=== PATIENT | male | born 1960 | race Caucasian/White ===

== ENCOUNTER → 2016-11-30 | Outpatient (CLI) | payer OTHER ==
[~2016-11-30] VITALS: Ht 170.2 cm; Wt 83.4 kg
[~2016-11-30] MED LIST: ADV250INH INH; ADV500INH INH; AEROCHAMBER PLUS; BREO1INH3 INH; DOCU10ELUD PO; IBUP80TA PO; LEVO500T PO; LIDOCAINE 2% INJ 100 MG/5 ML SDV (FOR ANES.) As Ordered ONE; MIDAZOLAM INJ 2 MG/2 ML VIAL (J2250) As Ordered ONE; MONT10TA2 PO; MULTCAP PO; NEUR300C PO; NS 1,000 ML IV SCH; OMEP40CA2 PO; PERC5TAB6 PO; PERCOCET PO; PRIL40CA PO; PROPOFOL 200 MG/20 ML VIAL As Ordered ONE; PROT1TAB2 PO; RANI15TA PO; TYLE325T5 PO; VENTOLIN ROTAHALER INH; XOPENEX INH; ZANT150T PO; fentaNYL 100 MCG/2 ML INJECTION (J3010) As Ordered ONE
--- NOTE | 2016-11-30 12:00 | ROOR ---
Patient Name: Yan Alvarez Procedure Date: 11/30/2016 11:34 AM Date of : 1960 Age: 56 Room: [facility] Gender: Male Note Status: Finalized Procedure: Upper GI endoscopy Indications: Oropharyngeal phase dysphagia, Unexplained chest pain, Costochondritis Providers: Yan RICKS MD Referring MD: ROHIT Tompkins Requesting Provider: Medicines: Monitored Anesthesia Care Complications: No immediate complications. Procedure: Pre-Anesthesia Assessment: - The heart rate, respiratory rate, oxygen saturations, blood pressure, adequacy of pulmonary ventilation, and response to care were monitored throughout the procedure. The Endoscope was introduced through the mouth, and advanced to the second part of duodenum. The upper GI endoscopy was accomplished without difficulty. The patient tolerated the procedure well. Findings: The examined esophagus was normal. This was biopsied with a cold forceps for evaluation of eosinophilic esophagitis. No endoscopic abnormality was evident in the esophagus to explain the patient's complaint of dysphagia. It was decided, however, to proceed with dilation of the entire esophagus. The scope was withdrawn. Dilation was performed with a Wills dilator with no resistance at 54 Fr. A few, non-bleeding erosions were found in the gastric body. There were no stigmata of recent bleeding. Biopsies were taken with a cold forceps for histology. The exam of the stomach was otherwise normal. The examined duodenum was normal. Impression: - Normal esophagus. Biopsied. - No endoscopic esophageal abnormality to explain patient's dysphagia. Esophagus dilated to 54 F wills. - Mild erosive gastropathy. Biopsied. - Stomach otherwise normal. - Normal examined duodenum. Recommendation: - Observe patient's clinical course. - Continue present medications. - Telephone endoscopist for pathology results in 2 weeks. Yan Ricks MD Yan RICKS MD 11/30/2016 11:59:31 AM This report has been signed electronically. Number of Addenda: 0 Note Initiated On: 11/30/2016 11:34 AM Estimated Blood Loss: Estimated blood loss: none.
[2016-11-30 12:32] VITALS: BP 150/90
--- NOTE | 2016-12-02 00:45 | ECGEPIP ---
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
== END ==
LOC: M OPP 10:21
PROVIDERS: ATTEND Internal Medicine Gastroenterology
DX: R13.12 Dysphagia, oropharyngeal phase (principal); K31.89 Other diseases of stomach and duodenum; E78.5 Hyperlipidemia, unspecified; J45.909 Unspecified asthma, uncomplicated; K21.9 Gastro-esophageal reflux disease without esophagitis; F17.210 Nicotine dependence, cigarettes, uncomplicated; F17.290 Nicotine dependence, other tobacco product, uncomplicated; R94.31 Abnormal electrocardiogram [ECG] [EKG]; Z88.0 Allergy status to penicillin; Z88.8 Allergy status to other drugs, medicaments and biological substances; Z79.899 Other long term (current) drug therapy; Z79.51 Long term (current) use of inhaled steroids
CPT/HCPCS: 43239; 43450; 88305; 93005; 99156; J2250; J3010

== ENCOUNTER → 2016-12-27 | Outpatient (CLI) | payer OTHER ==
[~2016-12-27] MED LIST changes: -LIDOCAINE 2% INJ 100 MG/5 ML SDV (FOR ANES.) As Ordered ONE; -MIDAZOLAM INJ 2 MG/2 ML VIAL (J2250) As Ordered ONE; -NS 1,000 ML IV SCH; -PROPOFOL 200 MG/20 ML VIAL As Ordered ONE; -fentaNYL 100 MCG/2 ML INJECTION (J3010) As Ordered ONE
--- NOTE | 2016-12-27 14:00 | REP ---
Clinical: Chest pain . Comparison: 05/26/2016 . Technique: PA and lateral. Findings: The mediastinum and cardiac silhouette are normal. The lung ashton are clear and without acute consolidation, effusion, or pneumothorax. The skeletal structures are intact and normal. Impression: 1. No acute cardiopulmonary process. Signed by Kaveh Gold MD 12/27/2016 01:51 P
[2016-12-27 14:30] LABS: BASO # 0.1 K/mm3 (0.0-0.2); BASO % 0.8 % (0.0-1.0); EOS # 0.3 K/mm3 (0.0-0.50); EOS % 3.4 % (0.0-3.0); LYMPH # 2.2 K/mm3 (1.5-4.5); LYMPH % 25.6 % (24.0-44.0); MEAN CORPUSCULAR HEMOGLOBIN 31.1 pg (27.0-33.0); MEAN CORPUSCULAR HGB CONC 34.5 g/dl (32.0-36.5); MEAN CORPUSCULAR VOLUME 90.2 fl (80.0-96.0); MONO # 0.4 K/mm3 (0.0-0.8); NEUTROPHILS # 5.5 K/mm3 (1.8-7.7); NEUTROPHILS % 63.5 % (36.0-66.0); RED CELL DISTRIBUTION WIDTH 12.6 % (11.5-14.5); WHITE BLOOD COUNT 8.6 K/mm3 (4.0-10.0)
[2016-12-27 14:46] LABS: ALBUMIN 3.5 GM/DL (3.2-5.2); ALBUMIN/GLOBULIN RATIO 1.21 (1.00-1.93); ALKALINE PHOSPHATASE 102 U/L (45-117); ALT/SGPT 36 U/L (12-78); AMYLASE 34 U/L (25-115); ANION GAP 8 MEQ/L (8-16); AST/SGOT 27 U/L (15-37); BILIRUBIN,TOTAL 0.3 MG/DL (0.2-1.0); BLOOD UREA NITROGEN 9 MG/DL (7-18); CARBON DIOXIDE LEVEL 30 MEQ/L (21-32); CHLORIDE LEVEL 104 MEQ/L (98-107); CHOLESTEROL LEVEL 221 MG/DL (<200); CREATININE FOR GFR 0.97 MG/DL (0.70-1.30); GLOMERULAR FILTRATION RATE > 60.0 (>56); GLUCOSE, FASTING 100 MG/DL (70-105); POTASSIUM SERUM 4.3 MEQ/L (3.5-5.1); SODIUM LEVEL 142 MEQ/L (136-145); TOTAL PROTEIN 6.4 GM/DL (6.4-8.2); TRIGLYCERIDES LEVEL 319 MG/DL (<150)
== END ==
LOC: M LAB 13:30
PROVIDERS: ATTEND Physician Assistant Medical
DX: R07.89 Other chest pain (principal)

== ENCOUNTER → 2017-01-04 | Outpatient (CLI) | payer OTHER ==
--- NOTE | 2017-01-04 10:42 | REP ---
CT STUDY OF THE CHEST WITHOUT CONTRAST: HISTORY: Shortness of breath, chest pain, cough. Comparison chest CT study is from May 22, 2010. Comparison chest x-ray December 27, 2016. CT FINDINGS: Preliminary digital wide piece goods inspector radiograph is unremarkable. No adrenal lesion is seen. There are granulomatous calcifications scattered in the spleen. The visualized upper abdominal structures are otherwise unremarkable on axial CT images. No extrathoracic mass or adenopathy is seen. Bone window settings show no bony destructive lesion. There are some degenerative changes in the thoracic spine. Incidental note is made of a small tracheal diverticulum projecting to the right of the tracheoesophageal groove at the thoracic inlet. This is a normal variant of no clinical significance and is unchanged from [address] study. The lung ashton remain clear. No pulmonary nodule or mass lesion is seen. No pleural or pericardial effusion is observed. Minimal vascular calcification is seen in the left coronary artery distribution. Tracheobronchial tree is unremarkable. IMPRESSION: Old granulomatous calcifications in the spleen. Minimal vascular calcification. No active cardiopulmonary disease. Signed by Sergio Parker MD 01/04/2017 04:43 P
== END ==
LOC: M RAD 06:52
PROVIDERS: ATTEND Physician Assistant Medical
DX: R07.89 Other chest pain (principal)

== ENCOUNTER → 2017-03-15 | Outpatient (REF) | payer OTHER ==
[2017-03-15 12:34] LABS: ALBUMIN 3.6 GM/DL (3.2-5.2); ALBUMIN/GLOBULIN RATIO 1.24 (1.00-1.93); BILIRUBIN,DIRECT 0.1 MG/DL (0.0-0.2); BILIRUBIN,TOTAL 0.4 MG/DL (0.2-1.0); TOTAL PROTEIN 6.5 GM/DL (6.4-8.2)
== END ==
LOC: M LABDRWAD 12:00
PROVIDERS: ATTEND Internal Medicine Cardiovascular Disease
DX: E78.00 Pure hypercholesterolemia, unspecified (principal)

== ENCOUNTER → 2017-04-24 | Outpatient (CLI) | payer OTHER ==
--- NOTE | 2017-04-24 09:55 | REP ---
REASON FOR EXAM: Low back pain. COMPARISON: None. There is mild to moderates loss of disc space height and disc hydrational signal at L2-3 and L4-5. Mild posterior disc space height loss is seen at all other levels with mild hydrational signal loss. The marrow signal is within normal limits throughout. No abnormal signal is seen in the imaged portion of the spinal cord. At the T12-L1 level, there is a moderate right paracentral disc extrusion which causes a focal concave anterior deformity of the anterior thecal sac. The extruded disc material has not migrated significantly. There is no gladys central canal stenosis or foraminal narrowing. At the L1-2 level, there is a mild broad-based annular bulge. There is no disc herniation, foraminal narrowing or central canal stenosis. At the L2-3 level. There is a mild to moderate broad-based annular bulge minimally compressing the anterior thecal sac and narrowing the lateral recesses. Mild degenerative facet joint changes are present bilaterally with mild thickening of the ligamentum flava. There was no disc extrusion or foraminal stenosis. At the L3-4 level, there is moderate to large broad-based annular bulge, which flattens and straightens the anterior thecal sac. Degenerative facet joint changes are seen bilaterally with thickening of the ligamentum flava and the factors in concert are causing mild central canal stenosis. There is no foraminal narrowing or disc extrusion. At the L4-5 level. There is a broad-based annular bulge in conjunction with hypertrophic degenerative facet joint changes bilaterally and thickening of the ligamentum flava. There is no acute disc extrusion. The discogenic changes and degenerative facet joint arthritic changes are causing mild foraminal stenosis and there is evidence of compression of the left L4 foraminal nerve. At the L5-S1 level, there is a mild asymmetric broad-based annular bulge with degenerative facet joint changes bilaterally. There is minimal anterior thecal sac impression by the discogenic changes. There is no disc extrusion, foraminal narrowing or gladys central canal stenosis. IMPRESSION: 1. There is a disc extrusion seen at T12-L1 as described above. 2. There are multilevel lumbar discogenic changes and facet joint arthritic changes as described above. Signed by Scott Baptiste DO 04/24/2017 11:04 A
== END ==
LOC: M RAD 06:42
PROVIDERS: ATTEND Physician Assistant Medical
DX: M54.5 Low back pain (principal)

== ENCOUNTER 2017-05-14 07:13 | Emergency (ER) | payer OTHER ==
[~2017-05-14] VITALS: Ht 172.7 cm; Wt 77.3 kg
[~2017-05-14 07:13] MED LIST changes: +PERC5TAB12 PO; -PERC5TAB6 PO
[2017-05-14 07:18] VITALS: BP 156/90
[2017-05-14] MEDS ORDERED: IBUP-1022 PO (07:42)
[2017-05-14] MEDS ORDERED: SOMA350T PO (07:42)
== END 2017-05-14 07:53 | disposition home or self-care (01) ==
LOC: M ED 07:13
DX: M54.2 Cervicalgia (principal); J45.909 Unspecified asthma, uncomplicated; K21.9 Gastro-esophageal reflux disease without esophagitis; Z79.899 Other long term (current) drug therapy; Z79.51 Long term (current) use of inhaled steroids; Z88.0 Allergy status to penicillin; Z88.5 Allergy status to narcotic agent; Z88.8 Allergy status to other drugs, medicaments and biological substances; Z91.010 Allergy to peanuts; F17.210 Nicotine dependence, cigarettes, uncomplicated

== ENCOUNTER → 2017-10-22 | Outpatient (REF) | payer OTHER ==
[~2017-10-22] MED LIST changes: +IBUP-1022 PO; +SOMA350T PO
[2017-10-22 12:42] LABS: BASO # 0.1 10^3/uL (0.0-0.2); EOS # 0.3 10^3/uL (0.0-0.50); EOS % 3.2 % (0.0-3.0); IMMATURE GRANULOCYTE % 0.6 % (0-0); LYMPH # 2.9 10^3/uL (1.5-4.5); LYMPH % 32.4 % (24.0-44.0); MEAN CORPUSCULAR HEMOGLOBIN 30.9 pg (27.0-33.0); MEAN CORPUSCULAR HGB CONC 32.7 g/dl (32.0-36.5); MEAN CORPUSCULAR VOLUME 94.8 fl (80.0-96.0); MONO # 0.7 10^3/uL (0.0-0.8); MONO % 7.3 % (0.0-5.0); NEUTROPHILS % 55.5 % (36.0-66.0); PLATELET COUNT, AUTOMATED 272 10^3/uL (150-450); RED CELL DISTRIBUTION WIDTH 13.7 % (11.5-14.5)
[2017-10-22 13:08] LABS: ALBUMIN 3.7 GM/DL (3.2-5.2); ALBUMIN/GLOBULIN RATIO 1.12 (1.00-1.93); ALKALINE PHOSPHATASE 81 U/L (45-117); ALT/SGPT 28 U/L (12-78); ANION GAP 6 MEQ/L (8-16); AST/SGOT 19 U/L (7-37); BILIRUBIN,TOTAL 0.5 MG/DL (0.2-1.0); BLOOD UREA NITROGEN 12 MG/DL (7-18); CALCIUM LEVEL 9.3 MG/DL (8.5-10.1); CARBON DIOXIDE LEVEL 31 MEQ/L (21-32); CHLORIDE LEVEL 107 MEQ/L (98-107); CHOLESTEROL LEVEL 178 MG/DL (<200); CREATININE FOR GFR 0.86 MG/DL (0.70-1.30); FREE T4 1.13 NG/DL (0.76-1.46); GLOMERULAR FILTRATION RATE > 60.0 (>56); GLUCOSE, FASTING 97 MG/DL (70-105); POTASSIUM SERUM 4.7 MEQ/L (3.5-5.1); SODIUM LEVEL 144 MEQ/L (136-145); T UPTAKE 39 % (33-40); TRIGLYCERIDES LEVEL 216 MG/DL (<150)
== END ==
LOC: M LABDRWAD 12:09
PROVIDERS: ATTEND Physician Assistant Medical
DX: E78.2 Mixed hyperlipidemia (principal); G47.00 Insomnia, unspecified

== ENCOUNTER → 2018-01-12 | Outpatient (CLI) | payer OTHER ==
[2018-01-12 10:46] LABS: HEMATOCRIT 45.7 % (42.0-52.0); HEMOGLOBIN 15.4 g/dl (14.0-18.0); MEAN CORPUSCULAR HEMOGLOBIN 30.7 pg (27.0-33.0); MEAN CORPUSCULAR HGB CONC 33.7 g/dl (32.0-36.5); MEAN CORPUSCULAR VOLUME 91.2 fl (80.0-96.0); PLATELET COUNT, AUTOMATED 231 10^3/uL (150-450); RED BLOOD COUNT 5.01 10^6/uL (4.30-6.10); RED CELL DISTRIBUTION WIDTH 13.9 % (11.5-14.5); WHITE BLOOD COUNT 8.9 10^3/uL (4.0-10.0)
[2018-01-12 11:11] LABS: ALBUMIN 3.9 GM/DL (3.2-5.2); ALBUMIN/GLOBULIN RATIO 1.39 (1.00-1.93); ALKALINE PHOSPHATASE 94 U/L (45-117); ALT/SGPT 25 U/L (12-78); ANION GAP 6 MEQ/L (8-16); AST/SGOT 19 U/L (7-37); BILIRUBIN,TOTAL 0.5 MG/DL (0.2-1.0); BLOOD UREA NITROGEN 10 MG/DL (7-18); CARBON DIOXIDE LEVEL 30 MEQ/L (21-32); CHLORIDE LEVEL 106 MEQ/L (98-107); CHOLESTEROL LEVEL 145 MG/DL (<200); CHOLESTEROL RISK RATIO 3.452 (<5); GLOMERULAR FILTRATION RATE > 60.0 (>56); GLUCOSE, FASTING 90 MG/DL (70-100); HDL CHOLESTEROL 42 MG/DL (>40); LDL CHOLESTEROL 77.4 MG/DL (<100); NON-HDL-C 103 MG/DL; POTASSIUM SERUM 4.5 MEQ/L (3.5-5.1); PSA SCREENING 0.42 NG/ML (< 4.0); SODIUM LEVEL 142 MEQ/L (136-145); THYROID STIMULATING HORMONE 0.618 uIU/ML (0.358-3.740); TOTAL PROTEIN 6.7 GM/DL (6.4-8.2); TRIGLYCERIDES LEVEL 128 MG/DL (<150)
[2018-01-13 11:09] LABS: TESTOSTERONE 346 NG/DL (241-827)
== END ==
LOC: M EKG 10:16
DX: J44.9 Chronic obstructive pulmonary disease, unspecified (principal)
CPT/HCPCS: 71046

== ENCOUNTER → 2018-01-28 | Outpatient (CLI) | payer OTHER | LOC: M ADAMS 10:35 | DX: M47.896 Other spondylosis, lumbar region (principal); M47.892 Other spondylosis, cervical region | CPT/HCPCS: 72050 ==

== ENCOUNTER → 2018-02-18 | Outpatient (REF) | payer OTHER | LOC: M LABDRAW1 11:38 | DX: Z13.820 Encounter for screening for osteoporosis (principal) ==

== ENCOUNTER → 2018-02-27 | Outpatient (CLI) | payer OTHER ==
[2018-02-27 10:23] LABS: INR 0.98; PROTHROMBIN TIME 13.1 SECONDS (12.4-14.5)
[2018-02-27 10:40] LABS: ESTIMATED AVERAGE GLUCOSE 108 MG/DL (60-110); HEMATOCRIT 47.8 % (42.0-52.0); HEMOGLOBIN 16.4 g/dl (13.5-17.5); HEMOGLOBIN A1c 5.4 %; MEAN CORPUSCULAR HEMOGLOBIN 31.1 pg (27.0-33.0); MEAN CORPUSCULAR HGB CONC 34.3 g/dl (32.0-36.5); MEAN CORPUSCULAR VOLUME 90.5 fl (80.0-96.0); PLATELET COUNT, AUTOMATED 262 10^3/uL (150-450); RED BLOOD COUNT 5.28 10^6/uL (4.30-6.10); RED CELL DISTRIBUTION WIDTH 14.1 % (11.5-14.5)
[2018-02-27 10:44] LABS: ALBUMIN/GLOBULIN RATIO 1.29 (1.00-1.93); ALKALINE PHOSPHATASE 102 U/L (45-117); ALT/SGPT 36 U/L (12-78); ANION GAP 5 MEQ/L (8-16); AST/SGOT 26 U/L (7-37); BILIRUBIN,TOTAL 0.6 MG/DL (0.2-1.0); BLOOD UREA NITROGEN 11 MG/DL (7-18); CALCIUM LEVEL 9.3 MG/DL (8.5-10.1); CARBON DIOXIDE LEVEL 29 MEQ/L (21-32); CHLORIDE LEVEL 110 MEQ/L (98-107); CHOLESTEROL LEVEL 193 MG/DL (<200); CHOLESTEROL RISK RATIO 3.574 (<5); CREATININE FOR GFR 0.92 MG/DL (0.70-1.30); GLOMERULAR FILTRATION RATE > 60.0 (>56); GLUCOSE, FASTING 109 MG/DL (70-100); HDL CHOLESTEROL 54 MG/DL (>40); LDL CHOLESTEROL 106.8 MG/DL (<100); NON-HDL-C 139 MG/DL; POTASSIUM SERUM 4.9 MEQ/L (3.5-5.1); PROSTATIC SPECIFIC AG MONITOR 0.44 NG/ML (< 4.0); SODIUM LEVEL 144 MEQ/L (136-145); THYROID STIMULATING HORMONE 0.399 uIU/ML (0.358-3.740); TOTAL PROTEIN 7.1 GM/DL (6.4-8.2); TRIGLYCERIDES LEVEL 161 MG/DL (<150)
== END ==
LOC: M LAB 09:43
DX: Z01.818 Encounter for other preprocedural examination (principal); E03.9 Hypothyroidism, unspecified
CPT/HCPCS: 84443

== ENCOUNTER 2018-03-10 07:04 | Inpatient (IN) | payer OTHER ==
[2018-03-10] MEDS ORDERED: LIDOCAINE 2% INJ 100 MG/5 ML SDV (FOR ANES.) As Ordered (07:28)
[2018-03-10] MEDS ORDERED: PROPOFOL 200 MG/20 ML VIAL As Ordered ×2 (07:28→12:55)
[2018-03-10] MEDS ORDERED: ROCURONIUM BROMIDE 50 MG/5 ML VIAL As Ordered ×2 (07:28→09:25)
[2018-03-10] MEDS ORDERED: dexameTHASONE 4 MG/ML 1ML VIAL (J1100) As Ordered (07:28)
[2018-03-10] MEDS ORDERED: fentaNYL 250 MCG/5 ML INJECTION (J3010) As Ordered (07:29)
[2018-03-10] MEDS ORDERED: MIDAZOLAM INJ 2 MG/2 ML VIAL (J2250) As Ordered (07:29)
[2018-03-10] MEDS: LR 1,000 ML IV ×2 (07:32→13:07)
[2018-03-10] MEDS: CLINDAMYCIN 900 MG in APPROPRIATE DILUENT 1 EA IV ×2 (08:35→20:27)
[2018-03-10] MEDS: OXYMETAZOLINE NASAL SPRAY (AFRIN) As Ordered (08:50)
[2018-03-10] MEDS ORDERED: GLYCOPYRROLATE INJ 0.2 MG/ML 2 ML VIAL As Ordered (09:41)
[2018-03-10] MEDS ORDERED: NEOSTIGMINE 10 MG/10 ML VIAL (J2710) As Ordered (09:41)
[2018-03-10] MEDS ORDERED: HYDROmorphone HCL 2 MG/ML 1ML VIAL (J1170) As Ordered (09:42)
[2018-03-10] MEDS ORDERED: ESMOLOL INJ 100MG/10ML VIAL As Ordered (11:37)
[2018-03-10] MEDS: THROMBIN SOLN 20,000 UNITS KIT As Ordered (12:40)
[2018-03-10] MEDS: methylPREDNISolone SUSP 40 MG/ML (DEPO-medrol) VIAL (J1030) As Ordered (12:40)
[2018-03-10] MEDS: BACITRACIN PWD 50,000 UNITS VIAL As Ordered (12:40)
[2018-03-10] MEDS ORDERED: LABETALOL HCL 100 MG/20 ML VIAL As Ordered (12:51)
[2018-03-10] MEDS ORDERED: fentaNYL 100 MCG/2 ML INJECTION (J3010) As Ordered (12:56)
[2018-03-10] MEDS ORDERED: HYDROmorphone HCL 1 MG/ML SYRINGE (J1170) As Ordered (13:22)
[2018-03-10] MEDS ORDERED: PERCOCET 5MG/325MG TAB As Ordered (13:22)
[2018-03-10] MEDS: PERCOCET 5MG/325MG TAB PO ×3 (13:23→17:52)
[2018-03-10] MEDS: HYDROmorphone HCL 1 MG/ML SYRINGE (J1170) IV ×5 (13:25→14:04)
[2018-03-10] MEDS ORDERED: ACETAMINOPHEN TAB 650MG DOSE (2X325MG) PO (13:45)
[2018-03-10] MEDS ORDERED: MORPHINE 2 MG/ML 1ML SYRINGE (J2270) IV (13:45)
[2018-03-10] MEDS ORDERED: traMADol 50 MG TAB PO (13:45)
[2018-03-10] MEDS: KCL 20MEQ IN D5/0.45NS 1000ML 1,000 ML IV (13:45)
[2018-03-10] MEDS ORDERED: ONDANSETRON 4MG/2ML VIAL (J2405) IV (13:45)
[2018-03-10] MEDS: ONDANSETRON 4MG/2ML VIAL (J2405) IV (13:55)
[2018-03-10] MEDS ORDERED: ALBUTEROL 90 MCG/ACT 8GM HFA INHALER INH (14:00)
[2018-03-10] MEDS: fentaNYL 100 MCG/2 ML INJECTION (J3010) IV ×4 (14:14→14:41)
[2018-03-10] MEDS: METHADONE 5 MG TAB (S0109) PO (14:45)
[2018-03-10] MEDS: PROMETHAZINE INJ 25 MG/ML VIAL (J2550) IV (16:28)
[2018-03-10] MEDS: MORPHINE 4 MG/ML 1ML VIAL/SYRINGE (J2270) IV ×2 (16:29→20:28)
[2018-03-10] MEDS: tiZANidine 4 MG TAB PO ×2 (16:33→20:28)
[2018-03-10] MEDS: LORATADINE 10 MG TAB PO (16:33)
[2018-03-10] MEDS: busPIRone 10 MG TAB PO (20:27)
[2018-03-10] MEDS: PANTOPRAZOLE 40MG TAB (PROTONIX) PO (20:27)
[2018-03-10] MEDS: AMITRIPTYLINE 50 MG TAB PO (20:27)
[2018-03-10] MEDS: MONTELUKAST 10 MG TAB PO (20:28)
[2018-03-11] MEDS: PERCOCET 5MG/325MG TAB PO ×3 (00:02→10:30)
[2018-03-11] MEDS: PANTOPRAZOLE 40MG TAB (PROTONIX) PO (08:15)
[2018-03-11] MEDS: INFLUENZA QUADRIVALENT PF VACCINE 0.5ML SYRINGE (90686) IM (08:15)
[2018-03-11] MEDS: LORATADINE 10 MG TAB PO (08:15)
[2018-03-11] MEDS: tiZANidine 4 MG TAB PO (08:15)
[2018-03-11] MEDS: busPIRone 10 MG TAB PO (08:15)
[2018-03-11] MEDS: CLINDAMYCIN 900 MG in APPROPRIATE DILUENT 1 EA IV (08:16)
[2018-03-11] MEDS: MORPHINE 4 MG/ML 1ML VIAL/SYRINGE (J2270) IV (08:16)
[2018-03-11] MEDS ORDERED: BREO ELLIPTA INH (09:00)
== END 2018-03-11 14:10 | disposition home or self-care (01) | DRG 304 ==
LOC: M OR 07:04 → M MS5PR 15:49
PROC: 0SG10J1 Fusion of 2 or more Lumbar Vertebral Joints with Synthetic Substitute, Posterior Approach, Posterior Column, Open Approach (ICD-10-PCS; principal; 2018-03-10 08:30)
PROC: 0ST20ZZ Resection of Lumbar Vertebral Disc, Open Approach (ICD-10-PCS; 2018-03-10 08:30)
DX: M48.062 Spinal stenosis, lumbar region with neurogenic claudication (principal); G56.03 Carpal tunnel syndrome, bilateral upper limbs; M54.81 Occipital neuralgia; M47.892 Other spondylosis, cervical region; M46.1 Sacroiliitis, not elsewhere classified; G56.23 Lesion of ulnar nerve, bilateral upper limbs

== ENCOUNTER 2018-06-20 08:48 | Emergency (ER) | payer OTHER ==
[2018-06-20] MEDS: MORPHINE 4 MG/ML 1ML VIAL/SYRINGE (J2270) IV ×2 (09:52→12:35)
[2018-06-20 10:09] LABS: BASO # 0.1 10^3/uL (0.0-0.2); BASO % 0.9 % (0.0-1.0); EOS # 0.5 10^3/uL (0.0-0.50); EOS % 5.2 % (0.0-3.0); HEMOGLOBIN 14.3 g/dl (13.5-17.5); IMMATURE GRANULOCYTE % 0.8 % (0-3.0); LYMPH # 2.4 10^3/uL (1.5-4.5); LYMPH % 26.4 % (24.0-44.0); MEAN CORPUSCULAR HEMOGLOBIN 31.8 pg (27.0-33.0); MEAN CORPUSCULAR VOLUME 93.3 fl (80.0-96.0); MONO # 0.6 10^3/uL (0.0-0.8); MONO % 6.8 % (0.0-5.0); NEUTROPHILS # 5.5 10^3/uL (1.8-7.7); NEUTROPHILS % 59.9 % (36.0-66.0); PLATELET COUNT, AUTOMATED 218 10^3/uL (150-450); WHITE BLOOD COUNT 9.2 10^3/uL (4.0-10.0)
[2018-06-20 10:22] LABS: INR 0.99; PROTHROMBIN TIME 13.2 SECONDS (12.1-14.4)
[2018-06-20 10:25] LABS: D-DIMER QUANT 583.4 ng/ml (<500)
[2018-06-20 10:33] LABS: ALBUMIN 3.5 GM/DL (3.2-5.2); ALBUMIN/GLOBULIN RATIO 1.13 (1.00-1.93); ALKALINE PHOSPHATASE 101 U/L (45-117); ALT/SGPT 26 U/L (12-78); ANION GAP 4 MEQ/L (8-16); AST/SGOT 19 U/L (7-37); BILIRUBIN,TOTAL 0.3 MG/DL (0.2-1.0); BLOOD UREA NITROGEN 17 MG/DL (7-18); CALCIUM LEVEL 8.7 MG/DL (8.5-10.1); CARBON DIOXIDE LEVEL 31 MEQ/L (21-32); CHLORIDE LEVEL 109 MEQ/L (98-107); CREATININE FOR GFR 0.98 MG/DL (0.70-1.30); GLOMERULAR FILTRATION RATE > 60.0 (>56); GLUCOSE, FASTING 105 MG/DL (70-100); LIPASE 65 U/L (73-393); POTASSIUM SERUM 4.3 MEQ/L (3.5-5.1); SODIUM LEVEL 144 MEQ/L (136-145); TOTAL PROTEIN 6.6 GM/DL (6.4-8.2)
[2018-06-20] MEDS ORDERED: ISOVUE-370 76% 100ML VIAL (Q9967) As Ordered (10:37)
== END 2018-06-20 16:06 | disposition left against medical advice (07) ==
LOC: M ED 08:48
DX: M54.9 Dorsalgia, unspecified (principal); R53.1 Weakness; R20.0 Anesthesia of skin; R26.89 Other abnormalities of gait and mobility; M25.471 Effusion, right ankle; M25.472 Effusion, left ankle; M25.551 Pain in right hip; M25.552 Pain in left hip; E78.5 Hyperlipidemia, unspecified; R51 Headache; J44.9 Chronic obstructive pulmonary disease, unspecified; K21.9 Gastro-esophageal reflux disease without esophagitis; F17.210 Nicotine dependence, cigarettes, uncomplicated; Z82.0 Family history of epilepsy and other diseases of the nervous system; Z88.5 Allergy status to narcotic agent; Z88.6 Allergy status to analgesic agent; Z88.0 Allergy status to penicillin; Z91.018 Allergy to other foods; Z79.899 Other long term (current) drug therapy; Z79.51 Long term (current) use of inhaled steroids
CPT/HCPCS: J2270

== ENCOUNTER 2018-12-23 06:59 | Day surgery (SDC) | payer OTHER ==
[~2018-12-23] VITALS: Ht 172.7 cm; Wt 78.9 kg
[~2018-12-23 06:59] MED LIST changes: +AMBI10TA PO; +AMIT50TA PO; +ATOR40TA75 PO; +BUSP30TA PO; +BUSP5TA PO; +CIPR-250 PO; +CYCL10TA PO; +LORA-243 PO; +NORC1TAB4 PO; +OXYC1TAB23 PO; +OXYCOD/APAP; +VENTAER INH; +ZANA2CAP PO
[2018-12-23] MEDS ORDERED: PROPOFOL 200 MG/20 ML VIAL As Ordered ONE (07:08)
[2018-12-23] MEDS ORDERED: LIDOCAINE 2% INJ 100 MG/5 ML SDV (FOR ANES.) As Ordered ONE (07:08)
[2018-12-23] MEDS ORDERED: SIMETHICONE 40MG/0.6ML DROPS 30ML As Ordered ONE (07:13)
[2018-12-23] MEDS ORDERED: NS 1,000 ML IV ONE (07:30)
--- NOTE | 2018-12-23 08:29 | ROOR ---
Patient Name: Yan Alvarez Procedure Date: 12/23/2018 7:58 AM Date of : 1960 Age: 58 Room: [facility] Gender: Male Note Status: Finalized Procedure: Colonoscopy Indications: High risk colon cancer surveillance: Personal history of colonic polyps, Last colonoscopy: September 2015 Providers: Yan RING MD Referring MD: ANJANA JOHNSON MD Requesting Provider: Medicines: Monitored Anesthesia Care Complications: No immediate complications. Procedure: Pre-Anesthesia Assessment: - The heart rate, respiratory rate, oxygen saturations, blood pressure, adequacy of pulmonary ventilation, and response to care were monitored throughout the procedure. The Colonoscope was introduced through the anus and advanced to the terminal ileum, with identification of the appendiceal orifice and IC valve. The colonoscopy was performed without difficulty. The patient tolerated the procedure well. The quality of the bowel preparation was good. Findings: The perianal and digital rectal examinations were normal. Four sessile polyps were found in the sigmoid colon, splenic flexure, ascending colon and cecum. The polyps were diminutive in size. These polyps were removed with a cold snare. Resection and retrieval were complete. Small Internal Hemorrhoids. The exam was otherwise without abnormality on direct and retroflexion views. Impression: - Four diminutive polyps in the sigmoid colon, at the splenic flexure, in the ascending colon and in the cecum, removed with a cold snare. Resected and retrieved. - Small Internal Hemorrhoids. - The exam was otherwise normal to the cecum. Recommendation: - Repeat colonoscopy in 3 years for surveillance. Yan Ring MD Yan RING MD 12/23/2018 8:28:25 AM This report has been signed electronically. Number of Addenda: 0 Note Initiated On: 12/23/2018 7:58 AM Estimated Blood Loss: Estimated blood loss: none.
[2018-12-23 08:45] VITALS: BP 125/78
== END 2018-12-23 08:51 | disposition home or self-care (01) ==
LOC: M OPP 06:59
PROVIDERS: ATTEND Internal Medicine Gastroenterology
DX: Z86.010 Personal history of colon polyps (principal); D12.0 Benign neoplasm of cecum; D12.2 Benign neoplasm of ascending colon; D12.3 Benign neoplasm of transverse colon; K63.5 Polyp of colon; K64.8 Other hemorrhoids; R12 Heartburn; F17.210 Nicotine dependence, cigarettes, uncomplicated; J45.909 Unspecified asthma, uncomplicated; F41.9 Anxiety disorder, unspecified; E78.00 Pure hypercholesterolemia, unspecified; Z88.0 Allergy status to penicillin; Z88.5 Allergy status to narcotic agent; Z88.6 Allergy status to analgesic agent; Z88.8 Allergy status to other drugs, medicaments and biological substances; Z91.018 Allergy to other foods; Z79.891 Long term (current) use of opiate analgesic; Z79.899 Other long term (current) drug therapy; Z80.1 Family history of malignant neoplasm of trachea, bronchus and lung

== ENCOUNTER → 2019-01-06 | Outpatient (CLI) | payer OTHER ==
--- NOTE | 2019-01-07 05:09 | REP ---
Clinical: Left scrotal pain. Technique: Real time badillo scale and color Doppler evaluation using linear high frequency transducer. Findings: The bilateral testicles are normal in contour, size, echogenicity, and vascularity without evidence for intratesticular mass lesion, infectious/inflammatory process, or torsion. Right epididymal head cyst measures 13 x 9 x 11 mm. A left tunica cyst measures 3.4 x 3.2 x 2.3 mm diameter. No hydrocele. No varicocele. No left inguinal hernia. Right testicle measures 5.0 x 3.1 x 3.3 cm. Left testicle measures 5.2 x 2.7 x 3.7 cm. Impression: 1. 13 mm right epididymal head cyst. 2. 3.4 mm left tunica cyst. 3. Otherwise normal scrotal/testicular ultrasound. Electronically Signed by Kaveh Gold MD 01/07/2019 05:01 A
== END ==
LOC: M RAD 11:26
PROVIDERS: ATTEND Surgery
DX: N50.3 Cyst of epididymis (principal); N44.1 Cyst of tunica albuginea testis

== ENCOUNTER → 2019-07-01 | Outpatient (CLI) | payer MEDICAID ==
[~2019-07-01] MED LIST changes: -DOCU10ELUD PO; +DOCU5LIQ PO; -NORC1TAB4 PO; +NORC1TAB7 PO; -PERCOCET PO
== END ==
LOC: M OUTALCOH 07:43
PROVIDERS: ATTEND Psychiatry & Neurology Psychiatry
DX: F10.10 Alcohol abuse, uncomplicated (principal); F11.10 Opioid abuse, uncomplicated

== ENCOUNTER 2019-07-30 10:00 | Outpatient (RCR) | payer MEDICAID | END 2019-08-03 | LOC: M OUTALCOH 10:00 | PROVIDERS: ATTEND Psychiatry & Neurology Psychiatry | DX: F10.10 Alcohol abuse, uncomplicated (principal) ==

== ENCOUNTER → 2019-09-03 | Outpatient (RCR) | payer MEDICAID | LOC: M OUTALCOH 08-04 14:00 | PROVIDERS: ATTEND Psychiatry & Neurology Psychiatry | DX: F10.10 Alcohol abuse, uncomplicated (principal); F11.20 Opioid dependence, uncomplicated; F17.200 Nicotine dependence, unspecified, uncomplicated ==

== ENCOUNTER 2019-09-28 08:45 | Outpatient (RCR) | payer MEDICAID | END 2019-10-03 | LOC: M OUTALCOH 08:45 | PROVIDERS: ATTEND Psychiatry & Neurology Psychiatry | DX: F10.10 Alcohol abuse, uncomplicated (principal); F11.20 Opioid dependence, uncomplicated; F17.200 Nicotine dependence, unspecified, uncomplicated ==

== ENCOUNTER 2019-11-02 08:45 | Outpatient (RCR) | payer MEDICAID | END 2019-11-03 | LOC: M OUTALCOH 08:45 | PROVIDERS: ATTEND Psychiatry & Neurology Psychiatry | DX: F10.10 Alcohol abuse, uncomplicated (principal); F11.20 Opioid dependence, uncomplicated; F17.200 Nicotine dependence, unspecified, uncomplicated ==

== ENCOUNTER 2019-12-03 14:37 | Outpatient (RCR) | payer MEDICAID | END 2019-12-04 | LOC: M OUTALCOH 14:37 | PROVIDERS: ATTEND Psychiatry & Neurology Psychiatry | DX: F10.10 Alcohol abuse, uncomplicated (principal); F11.20 Opioid dependence, uncomplicated; F17.200 Nicotine dependence, unspecified, uncomplicated ==

== ENCOUNTER 2019-12-30 16:00 | Outpatient (RCR) | payer MEDICAID ==
[~2019-12-30 16:00] MED LIST changes: -MONT10TA2 PO; +MONT10TA4 PO
== END 2020-01-02 ==
LOC: M OUTALCOH 16:00
PROVIDERS: ATTEND Psychiatry & Neurology Addiction Medicine
DX: F10.10 Alcohol abuse, uncomplicated (principal); F11.20 Opioid dependence, uncomplicated; F17.200 Nicotine dependence, unspecified, uncomplicated

== ENCOUNTER 2020-01-25 16:00 | Outpatient (RCR) | payer MEDICAID | END 2020-02-02 | LOC: M OUTALCOH 16:00 | PROVIDERS: ATTEND Psychiatry & Neurology Addiction Medicine | DX: F10.10 Alcohol abuse, uncomplicated (principal); F11.20 Opioid dependence, uncomplicated; F17.200 Nicotine dependence, unspecified, uncomplicated ==

== ENCOUNTER → 2020-03-03 | Outpatient (RCR) | payer MEDICAID ==
[~2020-03-03] MED LIST changes: +CYCL-707 PO; -CYCL10TA PO
== END ==
LOC: M OUTALCOH 02-15 15:42
PROVIDERS: ATTEND Psychiatry & Neurology Addiction Medicine
DX: F10.10 Alcohol abuse, uncomplicated (principal); F11.20 Opioid dependence, uncomplicated; F17.200 Nicotine dependence, unspecified, uncomplicated

== ENCOUNTER → 2020-03-09 | Outpatient (REF) | payer MEDICAID | LOC: M LABDRWAD 16:25 | PROVIDERS: ATTEND Physician Assistant | DX: R60.0 Localized edema (principal) ==

== ENCOUNTER → 2020-03-12 | Outpatient (CLI) | payer OTHER ==
[2020-03-12 09:36] LABS: HEMATOCRIT 47.4 % (42.0-52.0); HEMOGLOBIN 15.9 g/dl (13.5-17.5); MEAN CORPUSCULAR HEMOGLOBIN 29.2 pg (27.0-33.0); MEAN CORPUSCULAR HGB CONC 33.5 g/dl (32.0-36.5); PLATELET COUNT, AUTOMATED 251 10^3/uL (150-450); RED BLOOD COUNT 5.45 10^6/uL (4.30-6.10); WHITE BLOOD COUNT 8.4 10^3/uL (4.0-10.0)
[2020-03-12 10:09] LABS: ALBUMIN 3.7 GM/DL (3.2-5.2); ALT/SGPT 75 U/L (12-78); BILIRUBIN,TOTAL 0.4 MG/DL (0.2-1.0); BLOOD UREA NITROGEN 15 MG/DL (7-18); CALCIUM LEVEL 8.6 MG/DL (8.5-10.1); CARBON DIOXIDE LEVEL 32 MEQ/L (21-32); CHLORIDE LEVEL 101 MEQ/L (98-107); CHOLESTEROL LEVEL 176 MG/DL (<200); CHOLESTEROL RISK RATIO 4.631 (<5); GLOMERULAR FILTRATION RATE > 60.0 (>56); GLUCOSE, FASTING 109 MG/DL (70-100); HDL CHOLESTEROL 38 MG/DL (>40); LDL CHOLESTEROL 95 MG/DL (<100); NON-HDL-C 138 MG/DL; POTASSIUM SERUM 4.2 MEQ/L (3.5-5.1); PROSTATIC SPECIFIC AG MONITOR 0.45 NG/ML (< 4.00); SODIUM LEVEL 138 MEQ/L (136-145); THYROID STIMULATING HORMONE 0.954 uIU/ML (0.358-3.740); TOTAL PROTEIN 6.6 GM/DL (6.4-8.2); TRIGLYCERIDES LEVEL 214 MG/DL (<150)
[2020-03-12 10:35] LABS: HEMOGLOBIN A1c 6.1 %
[2020-03-14 10:48] LABS: TESTOSTERONE 619 NG/DL (241-827)
== END ==
LOC: M LAB 08:48
PROVIDERS: ATTEND Family Medicine
DX: E03.9 Hypothyroidism, unspecified (principal)

== ENCOUNTER 2020-03-31 14:15 | Outpatient (RCR) | payer MEDICAID | END 2020-04-03 | LOC: M OUTALCOH 14:15 | PROVIDERS: ATTEND Psychiatry & Neurology Addiction Medicine | DX: F10.10 Alcohol abuse, uncomplicated (principal); F11.20 Opioid dependence, uncomplicated; F17.200 Nicotine dependence, unspecified, uncomplicated ==

== ENCOUNTER 2020-05-02 13:11 | Outpatient (RCR) | payer MEDICAID | END 2020-05-03 | LOC: M OUTALCOH 13:11 | PROVIDERS: ATTEND Psychiatry & Neurology Addiction Medicine | DX: F10.10 Alcohol abuse, uncomplicated (principal); F11.20 Opioid dependence, uncomplicated; F17.200 Nicotine dependence, unspecified, uncomplicated ==

== ENCOUNTER → 2020-05-10 | Outpatient (CLI) | payer MEDICAID ==
--- NOTE | 2020-05-11 07:27 | REP ---
REASON: Chronic pain. PRIORS: None. There is moderate AC joint DJD with asymmetric joint space narrowing and marginal osteophytosis. The glenohumeral relationship is within normal limits. There is no acute fracture, dislocation, or subluxation. IMPRESSION: Chronic changes, as described above. Electronically Signed by Scott Baptiste DO 05/11/2020 09:31 A
== END ==
LOC: M ADAMS 13:50
PROVIDERS: ATTEND Family Medicine
DX: M19.011 Primary osteoarthritis, right shoulder (principal)

== ENCOUNTER 2020-05-30 10:00 | Outpatient (RCR) | payer MEDICAID | END 2020-06-03 | LOC: M OUTALCOH 10:00 | PROVIDERS: ATTEND Psychiatry & Neurology Psychiatry | DX: F10.10 Alcohol abuse, uncomplicated (principal); F11.20 Opioid dependence, uncomplicated; F17.200 Nicotine dependence, unspecified, uncomplicated ==

== ENCOUNTER → 2020-07-04 | Outpatient (RCR) | payer MEDICAID | LOC: M OUTALCOH 06-06 16:00 | PROVIDERS: ATTEND Psychiatry & Neurology Addiction Medicine | DX: F10.10 Alcohol abuse, uncomplicated (principal); F11.20 Opioid dependence, uncomplicated; F17.200 Nicotine dependence, unspecified, uncomplicated ==

== ENCOUNTER 2020-08-25 14:30 | Outpatient (RCR) | payer MEDICAID | END 2020-09-03 | LOC: M OUTALCOH 14:30 | PROVIDERS: ATTEND Psychiatry & Neurology Addiction Medicine | DX: F10.10 Alcohol abuse, uncomplicated (principal); F11.20 Opioid dependence, uncomplicated; F17.200 Nicotine dependence, unspecified, uncomplicated ==

== ENCOUNTER → 2020-08-27 | Outpatient (CLI) | payer OTHER ==
--- NOTE | 2020-08-27 09:32 | REP ---
INDICATION: HTN COPD COMPARISON: 06/20/2018 TECHNIQUE: PA and lateral. FINDINGS: The mediastinum and cardiac silhouette are normal. The lung ashton demonstrate stable chronic changes, are clear and without acute consolidation, effusion, or pneumothorax. The skeletal structures are intact and normal. IMPRESSION: No acute cardiopulmonary process. <Electronically signed by Kaveh Gold > 08/27/20 [id number]
[2020-08-27 09:52] LABS: HEMATOCRIT 48.7 % (42.0-52.0); MEAN CORPUSCULAR HEMOGLOBIN 29.4 pg (27.0-33.0); MEAN CORPUSCULAR HGB CONC 32.9 g/dl (32.0-36.5); MEAN CORPUSCULAR VOLUME 89.5 fl (80.0-96.0); PLATELET COUNT, AUTOMATED 328 10^3/uL (150-450); RED BLOOD COUNT 5.44 10^6/uL (4.30-6.10); WHITE BLOOD COUNT 10.6 10^3/uL (4.0-10.0)
[2020-08-27 10:08] LABS: HEMOGLOBIN A1c 5.4 %
[2020-08-27 10:24] LABS: ALBUMIN 3.9 GM/DL (3.2-5.2); ALT/SGPT 33 U/L (12-78); BILIRUBIN,TOTAL 0.5 MG/DL (0.2-1.0); BLOOD UREA NITROGEN 11 MG/DL (7-18); CALCIUM LEVEL 9.1 MG/DL (8.5-10.1); CARBON DIOXIDE LEVEL 30 MEQ/L (21-32); CHLORIDE LEVEL 104 MEQ/L (98-107); CHOLESTEROL LEVEL 175 MG/DL (<200); CHOLESTEROL RISK RATIO 4.069 (<5); CREATININE FOR GFR 0.98 MG/DL (0.70-1.30); GLOMERULAR FILTRATION RATE > 60.0 (>56); GLUCOSE, FASTING 90 MG/DL (70-100); HDL CHOLESTEROL 43 MG/DL (>40); LDL CHOLESTEROL 87 MG/DL (<100); NON-HDL-C 132 MG/DL; POTASSIUM SERUM 4.5 MEQ/L (3.5-5.1); PROSTATIC SPECIFIC AG MONITOR 0.74 NG/ML (< 4.00); SODIUM LEVEL 139 MEQ/L (136-145); THYROID STIMULATING HORMONE 0.537 uIU/ML (0.358-3.740); TOTAL PROTEIN 7.3 GM/DL (6.4-8.2); TRIGLYCERIDES LEVEL 225 MG/DL (<150)
--- NOTE | 2020-08-27 12:01 | ECGEPIP ---
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
== END ==
LOC: M LAB 08:53
PROVIDERS: ATTEND Family Medicine
DX: J44.9 Chronic obstructive pulmonary disease, unspecified (principal); R94.31 Abnormal electrocardiogram [ECG] [EKG]; I10 Essential (primary) hypertension

== ENCOUNTER → 2020-10-03 | Outpatient (RCR) | payer MEDICAID | LOC: M OUTALCOH 14:50 | PROVIDERS: ATTEND Psychiatry & Neurology Addiction Medicine | DX: F10.10 Alcohol abuse, uncomplicated (principal); F11.20 Opioid dependence, uncomplicated; F17.200 Nicotine dependence, unspecified, uncomplicated ==

== ENCOUNTER → 2020-11-03 | Outpatient (RCR) | payer MEDICAID ==
[~2020-11-03] MED LIST changes: -MONT10TA4 PO; +MONT5TAB2 PO
== END ==
LOC: M OUTALCOH 10-10 14:58
PROVIDERS: ATTEND Psychiatry & Neurology Addiction Medicine
DX: F10.10 Alcohol abuse, uncomplicated (principal); F11.20 Opioid dependence, uncomplicated; F17.200 Nicotine dependence, unspecified, uncomplicated

== ENCOUNTER 2020-11-25 13:20 | Outpatient (RCR) | payer MEDICAID | END 2020-12-04 | LOC: M OUTALCOH 13:20 | PROVIDERS: ATTEND Psychiatry & Neurology Psychiatry | DX: F11.21 Opioid dependence, in remission (principal); F10.11 Alcohol abuse, in remission; F17.201 Nicotine dependence, unspecified, in remission ==

== ENCOUNTER → 2020-12-21 | Outpatient (CLI) | payer MEDICAID ==
[~2020-12-21] MED LIST changes: +MONT10TA10 PO; -MONT5TAB2 PO
== END ==
LOC: M LABSMTC 10:07
PROVIDERS: ATTEND Pediatrics
DX: Z20.822 Contact with and (suspected) exposure to COVID-19 (principal)

== ENCOUNTER → 2020-12-21 | Outpatient (CLI) | payer MEDICAID ==
[2020-12-21 11:48] LABS: HEMATOCRIT 44.3 % (42.0-52.0); HEMOGLOBIN 14.7 g/dl (13.5-17.5); MEAN CORPUSCULAR HEMOGLOBIN 28.8 pg (27.0-33.0); MEAN CORPUSCULAR HGB CONC 33.2 g/dl (32.0-36.5); MEAN CORPUSCULAR VOLUME 86.9 fl (80.0-96.0); PLATELET COUNT, AUTOMATED 267 10^3/uL (150-450); WHITE BLOOD COUNT 9.4 10^3/uL (4.0-10.0)
[2020-12-21 13:07] LABS: ALT/SGPT 32 U/L (12-78); BILIRUBIN,TOTAL 0.5 MG/DL (0.2-1.0); BLOOD UREA NITROGEN 8 MG/DL (7-18); CALCIUM LEVEL 9.6 MG/DL (8.5-10.1); CARBON DIOXIDE LEVEL 29 MEQ/L (21-32); CHLORIDE LEVEL 103 MEQ/L (98-107); CHOLESTEROL LEVEL 161 MG/DL (<200); CHOLESTEROL RISK RATIO 3.354 (<5); CREATININE FOR GFR 0.96 MG/DL (0.70-1.30); GLOMERULAR FILTRATION RATE > 60.0 (>56); GLUCOSE, FASTING 96 MG/DL (70-100); HDL CHOLESTEROL 48 MG/DL (>40); LDL CHOLESTEROL 88 MG/DL (<100); NON-HDL-C 113 MG/DL; POTASSIUM SERUM 4.6 MEQ/L (3.5-5.1); PROSTATIC SPECIFIC AG MONITOR 0.61 NG/ML (< 4.00); SODIUM LEVEL 139 MEQ/L (136-145); THYROID STIMULATING HORMONE 0.431 uIU/ML (0.358-3.740); TOTAL PROTEIN 7.1 GM/DL (6.4-8.2); TRIGLYCERIDES LEVEL 125 MG/DL (<150)
--- NOTE | 2020-12-22 04:09 | REP ---
INDICATION: HTN/COPD- LABS COMPARISON: 08/27/2020 TECHNIQUE: PA and lateral. FINDINGS: The mediastinum and cardiac silhouette are normal. The lung ashton are clear and without acute consolidation, effusion, or pneumothorax. The skeletal structures are intact and normal. IMPRESSION: No acute cardiopulmonary process. <Electronically signed by Kaveh Gold > 12/22/20 [id number]
--- NOTE | 2020-12-22 15:50 | ECGEPIP ---
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
== END ==
LOC: M LAB 10:52
PROVIDERS: ATTEND Family Medicine
DX: J44.9 Chronic obstructive pulmonary disease, unspecified (principal); I10 Essential (primary) hypertension

== ENCOUNTER 2020-12-30 09:00 | Outpatient (RCR) | payer MEDICAID | END 2021-01-01 | LOC: M OUTALCOH 09:00 | PROVIDERS: ATTEND Psychiatry & Neurology Psychiatry | DX: F11.21 Opioid dependence, in remission (principal); F10.21 Alcohol dependence, in remission; F17.200 Nicotine dependence, unspecified, uncomplicated ==

== ENCOUNTER 2021-01-31 09:00 | Outpatient (RCR) | payer MEDICAID | END 2021-02-01 | LOC: M OUTALCOH 09:00 | PROVIDERS: ATTEND Psychiatry & Neurology Psychiatry | DX: F11.20 Opioid dependence, uncomplicated (principal); F10.10 Alcohol abuse, uncomplicated; F17.200 Nicotine dependence, unspecified, uncomplicated ==

== ENCOUNTER 2021-02-08 15:30 | Outpatient (RCR) | payer MEDICAID | END 2021-03-03 | LOC: M OUTALCOH 15:30 | PROVIDERS: ATTEND Psychiatry & Neurology Psychiatry | DX: F11.20 Opioid dependence, uncomplicated (principal); F10.10 Alcohol abuse, uncomplicated; F17.200 Nicotine dependence, unspecified, uncomplicated ==

== ENCOUNTER 2021-03-15 15:00 | Outpatient (RCR) | payer MEDICAID | END 2021-04-03 | LOC: M OUTALCOH 15:00 | PROVIDERS: ATTEND Psychiatry & Neurology Psychiatry | DX: F11.20 Opioid dependence, uncomplicated (principal); F10.10 Alcohol abuse, uncomplicated; F17.200 Nicotine dependence, unspecified, uncomplicated ==

== ENCOUNTER → 2021-03-23 | Outpatient (CLI) | payer OTHER ==
[~2021-03-23] MED LIST changes: +PROHANCE 279.3MG/ML 15ML VIAL As Ordered ONE
--- NOTE | 2021-03-23 09:16 | REP ---
INDICATION: BILATERAL HEADACHES. COMPARISON: No comparison brain imaging.. TECHNIQUE: Axial and sagittal imaging planes are utilized for T1 and T2-weighted scans. Sequences include spin-echo, fast spin echo, FLAIR, and diffusion weighted sequences. 15 mL of intravenous ProHance is administered and T1 weighted post gadolinium enhanced axial, coronal and sagittal imaging planes are acquired. FINDINGS: No bony calvarial lesion is seen. On sagittal images in the midline, the arch of C1 appears developmentally somewhat small such that there is a ventral indentation and there is dorsal displacement of the upper cervical cord at the spinal medullary junction with mild overall narrowing of the cervical canal at the C1 level. Occipital condyles are normally aligned with respect to the lateral masses C1 on coronal images. This is felt to be developmental variant. Dens is unremarkable in appearance. There is no evidence of tonsillar ectopia. There is no MR evidence of significant paranasal sinus disease. No intraorbital abnormality is appreciated. Lateral, 3rd, and 4th ventricles are normal in size and position. Diffusion-weighted scans show no evidence of restricted diffusion to suggest acute ischemia. There is no evidence of infarction or intracranial hemorrhage. FLAIR and turbo spin echo T2 weighted scans demonstrate a few foci of periventricular and subcortical white matter hyperintensity consistent with mild small vessel changes. On postcontrast images there is enhancement in expected intracranial vascular structures. No abnormal intracranial contrast enhancement is appreciated. There is no evidence of mass or extra-axial fluid collection. IMPRESSION: Mild small vessel changes. No acute intracranial abnormality. 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 <Electronically signed by Sagar Parker > 03/23/21 0975
== END ==
LOC: M RAD 07:26
PROVIDERS: ATTEND Student in an Organized Health Care Education/Training Program
DX: R51.9 Headache, unspecified (principal); Q76.49 Other congenital malformations of spine, not associated with scoliosis
CPT/HCPCS: 70553; A9576

== ENCOUNTER 2021-05-01 08:30 | Outpatient (RCR) | payer MEDICAID ==
[~2021-05-01 08:30] MED LIST changes: -PROHANCE 279.3MG/ML 15ML VIAL As Ordered ONE
== END 2021-05-03 ==
LOC: M OUTALCOH 08:30
PROVIDERS: ATTEND Psychiatry & Neurology Psychiatry
DX: F11.20 Opioid dependence, uncomplicated (principal); F10.10 Alcohol abuse, uncomplicated; F17.200 Nicotine dependence, unspecified, uncomplicated

== ENCOUNTER 2021-06-02 13:01 | Day surgery (SDC) | payer MEDICAID, OTHER ==
[~2021-06-02] VITALS: Ht 172.7 cm; Wt 78.9 kg
--- NOTE | 2021-06-02 18:07 | REP ---
INDICATION: bilateral testicular pain. COMPARISON: None. TECHNIQUE: Multiplanar ultrasound evaluation of the right inguinal region was performed. FINDINGS: No evidence of right inguinal hernia. IMPRESSION: No evidence of recurrence right inguinal hernia. <Electronically signed by Ridge Chen > 06/02/21 [id number]
[2021-06-02] MEDS ORDERED: NS 1,000 ML IV ONE (18:10)
--- NOTE | 2021-06-02 18:15 | REP ---
INDICATION: bilateral testicular pain. COMPARISON: Scrotal ultrasound, 01/06/2019 TECHNIQUE: Multiplanar ultrasound evaluation of the scrotum was performed including color Doppler. FINDINGS: The right testis measures 5.0 x 3.8 x 2.4 cm. The RI is 0.60; the PSV is 13.3 cm/s and the EDV is 5.4 cm/s. The left testis measures 5.0 x 4.0 x 2.9 cm, and contains a marginal cyst measuring 4 x 4 x 3 mm. The RI is 0.56; the PSV is 5.6 cm/s and the EDV is 2.5 cm/s. The head of the right epididymis measures 16 mm in thickness, and contains a septated cyst measuring 10 x 10 x 7 mm. The head of the left epididymis measures 8 mm in thickness. No evidence of varicocele or hydrocele. IMPRESSION: 1. Benign cyst in the head of the right epididymis. 2. There is a benign marginal cyst in the left testis. 3.. No evidence of acute pathology. <Electronically signed by Ridge Chen > 06/02/21 2226
[2021-06-02] MEDS ORDERED: HYDR50TA70 PO (18:41)
[2021-06-02 18:47] LABS: BASO % 0.2 % (0.0-1.0); EOS % 0.1 % (0.0-3.0); HEMOGLOBIN 16.5 g/dl (13.5-17.5); LYMPH # 1.9 10^3/uL (1.5-5.0); LYMPH % 9.9 % (24.0-44.0); MEAN CORPUSCULAR HEMOGLOBIN 29.2 pg (27.0-33.0); MEAN CORPUSCULAR HGB CONC 35.1 g/dl (32.0-36.5); MEAN CORPUSCULAR VOLUME 83.2 fl (80.0-96.0); MONO # 1.3 10^3/uL (0.0-0.8); MONO % 6.5 % (2.0-8.0); NEUTROPHILS # 16.1 10^3/uL (1.5-8.5); NEUTROPHILS % 82.6 % (36.0-66.0); PLATELET COUNT, AUTOMATED 280 10^3/uL (150-450); RED BLOOD COUNT 5.65 10^6/uL (4.30-6.10); WHITE BLOOD COUNT 19.5 10^3/uL (4.0-10.0)
[2021-06-02] MEDS ORDERED: ISOVUE-370 76% 100ML VIAL As Ordered ONE (18:48)
[2021-06-02] MEDS ORDERED: MORPHINE 4 MG/ML 1ML VIAL/SYRINGE (J2270) IV ONE ×2 (18:50→21:05)
--- NOTE | 2021-06-02 20:40 | REPVR ---
PROCEDURE INFORMATION: Exam: CT Abdomen And Pelvis With Contrast Exam date and time: 06/02/2021 6:07 PM Age: 60 years old Clinical indication: Abdominal pain; Additional info: Rlq/groin pain TECHNIQUE: Imaging protocol: Computed tomography of the abdomen and pelvis with contrast. Radiation optimization: All CT scans at this facility use at least one of these dose optimization techniques: automated exposure control; mA and/or kV adjustment per patient size (includes targeted exams where dose is matched to clinical indication); or iterative reconstruction. Contrast material: ISOVUE 370; Contrast volume: 100 ml; Contrast route: INTRAVENOUS (IV); COMPARISON: CT ABD/PEL W/IV CONTRAST ONLY 06/20/2018 10:35 AM FINDINGS: Liver: Unremarkable. No mass. Gallbladder and bile ducts: Unremarkable. No calcified stones. No ductal dilation. Pancreas: Unremarkable. No ductal dilation. Spleen: Calcified granulomas within the spleen. Adrenal glands: Normal. No mass. Kidneys and ureters: Right renal cyst 11 mm cyst within the right kidney midpole. No right renal stone or hydronephrosis. Normal left kidney and left ureter. Stomach and bowel: Unremarkable. No obstruction. No mucosal thickening. Appendix: The appendix is distended measuring up to 12 mm in diameter. There is low-density appendix wall thickening and stranding and hazy density in in the periappendiceal fat consistent with acute appendicitis. Intraperitoneal space: No free intraperitoneal fluid or free air. Vasculature: Unremarkable. No abdominal aortic aneurysm. Lymph nodes: Unremarkable. No enlarged lymph nodes. Urinary bladder: Unremarkable as visualized. Reproductive: Unremarkable as visualized. Bones/joints: Spinous process fusion at L3-L4 with metallic fusion device. Degenerative spondylosis of the lumbar spine. No acute fracture. Soft tissues: Unremarkable. IMPRESSION: Acute appendicitis. COMMENTS: Consistent with the [employer]'s Incidental Findings Committee white paper (J Am Anurag Radiol 2018): Any incidental renal lesion less than 1 cm or classified as too small to characterize, or any incidental cystic renal lesion characterized as simple-appearing, is likely benign. No follow-up imaging is recommended for these lesions per consensus recommendations based on imaging criteria. Electronically signed by: Michael Gillespie On 06/02/2021 20:40:01 PM
[2021-06-02] MEDS ORDERED: metroNIDAZOLE 500 MG in IV 1 EA IV ONE (21:10)
[2021-06-02] MEDS ORDERED: CIPROFLOXACIN 400 MG in IV 1 EA IV ONE (21:10)
[2021-06-02] MEDS ORDERED: ROCURONIUM BROMIDE 50 MG/5 ML VIAL As Ordered ONE (21:42)
[2021-06-02] MEDS ORDERED: fentaNYL 250 MCG/5 ML INJECTION (J3010) As Ordered ONE (21:42)
[2021-06-02] MEDS ORDERED: LIDOCAINE 2% 100MG/5ML SDV (FOR ANES.) As Ordered ONE (21:42)
[2021-06-02] MEDS ORDERED: MIDAZOLAM INJ 2MG/2ML VIAL (J2250 PER 1MG) As Ordered ONE (21:42)
[2021-06-02] MEDS ORDERED: propofoL 200 MG/20 ML VIAL As Ordered ONE (21:42)
[2021-06-02] MEDS ORDERED: BUPIVACAINE/EPIN 0.25% 30 ML VIAL As Ordered ONE (21:46)
[2021-06-02] MEDS ORDERED: NORCO, ANEXSIA 5/325MG TABLET (HYDROcodone/ACETAMINOPHEN) PO PRN (22:50)
[2021-06-02] MEDS ORDERED: dexameTHASONE 4 MG/ML 1ML VIAL (J1100 PER 1MG) As Ordered ONE (23:07)
[2021-06-02] MEDS ORDERED: ACETAMINOPHEN 1000MG 100ML IV BTL (OFIRMEV) (J0131 PER 10MG) As Ordered ONE (23:24)
[2021-06-02] MEDS ORDERED: SUGAMMADEX SODIUM 500 MG/5 ML VIAL (BRIDION) As Ordered ONE (23:38)
[2021-06-03] VITALS (11 sets, daily range): BP systolic 106–141; BP diastolic 67–86
[2021-06-03] MEDS ORDERED: ONDANSETRON 4MG/2ML VIAL As Ordered ONE
[2021-06-03] MEDS ORDERED: ALBUTEROL 6.7GM INHALER **FOR ANES. CART/OMNICELL ONLY As Ordered ONE (00:08)
[2021-06-03] MEDS ORDERED: ONDANSETRON 4MG/2ML VIAL IV PRN (00:15)
[2021-06-03] MEDS ORDERED: LR 1,000 ML IV SCH (00:15)
[2021-06-03] MEDS ORDERED: PERCOCET 5MG/325MG TAB PO PRN (00:15)
[2021-06-03] MEDS: fentaNYL 100 MCG/2 ML INJECTION (J3010) IV PRN ×4 (00:27→00:44)
[2021-06-03] MEDS: NS 1,000 ML IV SCH ×3 (01:13→15:19)
[2021-06-03] MEDS: metroNIDAZOLE 500 MG in IV 1 EA IV SCH ×3 (01:13→15:18)
[2021-06-03] MEDS: ONDANSETRON 4MG/2ML VIAL IV PRN ×2 (01:27→21:29)
--- NOTE | 2021-06-03 06:27 | HPE ---
HISTORY AND PHYSICAL DATE OF ADMISSION: 06/02/2021 CHIEF COMPLAINT: Abdominal pain. HISTORY OF PRESENT ILLNESS: The patient is a 60-year-old male who presents with severe right lower quadrant pain. He said the pain started on Saturday, but he thought it was constipation and gas pain; however, it got persistently worse throughout the week and the last48 hours have been pretty severe. He has been unable to eat very much at all. He came to the emergency room today complaining of mainly inguinal and testicular pain. They started off by obtaining ultrasound of his scrotum and then after they did a physical examination, it was determined that his pain was in the right lower quadrant. They did ordered labs for him and found a white count of 19.5 and then sent him for a CT. This showed acute appendicitis. Denies any fevers or chills. No nausea or vomiting, but he does have a lack of appetite and severe abdominal pains. No recent travel or trauma. No change in medications. PAST MEDICAL HISTORY: 1. Anxiety and depression. 2. Hyperlipidemia. 3. Hypertension. PAST SURGICAL: Bilateral inguinal hernia repairs. Knee surgery. Back surgery. Hydrocele surgery. ALLERGIES: Multiple, please see med rec. SOCIAL HISTORY: Smokes a pack and a half a week. Denies drug or alcohol abuse. FAMILY HISTORY: Noncontributory. MEDICATIONS: Please see med rec. REVIEW OF SYSTEMS: Pertinent positives and negatives as stated in the history of present illness. PHYSICAL EXAMINATION: General: Alert and oriented times 3, in no acute distress. Vitals: Temperature 98.2, pulse 108, respirations 16, blood pressure 139/87, pulse oximetry 97% on room air. HEENT: Pupils equal, round and reactive to light and accommodation. Heart: S1, S2, regular rate and rhythm. Lungs: Clear to auscultation bilaterally. Abdomen: Soft, tender on palpation in right lower quadrant. Localized guarding and rigidity. Extremities: No clubbing, cyanosis or edema. LABORATORY DATA: White count 19.5, hemoglobin 16.5, platelets 280. Sodium 135, potassium 3.8, creatinine 1. IMAGING; CT abdomen and pelvis showed a dilated appendix 12 mm with wall thickening and stranding and periappendiceal fat consistent with acute appendicitis. ASSESSMENT AND PLAN: The patient is a 60-year-old male with signs of acute appendicitis. Recommendation was to proceed with laparoscopic appendectomy. Risks and benefits of procedure not limited to, but including bleeding, infection, hernia, damage to surrounding structures and need for further surgery, was discussed in detail with the patient and informed consent was obtained and procedure was planned. Postoperatively, he will be kept overnight on IV fluids and antibiotics. Plan is to discharge home once his pain improves and his white count improves.
[2021-06-03] MEDS ORDERED: HYDR50CA2 PO (06:30)
[2021-06-03] MEDS ORDERED: LISI10TA22 PO (06:30)
[2021-06-03] MEDS ORDERED: CITA20TA7 PO (06:30)
[2021-06-03] MEDS ORDERED: TAMS1CAP17 PO (06:30)
[2021-06-03] MEDS ORDERED: TRIA37.5 PO (06:30)
[2021-06-03] MEDS ORDERED: BUPR300T92 PO (06:31)
[2021-06-03] MEDS ORDERED: TOPI25TA10 PO (06:31)
[2021-06-03] MEDS ORDERED: BUPR1FIL6 SL (06:34)
[2021-06-03 06:45] LABS: HEMATOCRIT 40.1 % (42.0-52.0); MEAN CORPUSCULAR HEMOGLOBIN 28.9 pg (27.0-33.0); MEAN CORPUSCULAR HGB CONC 34.4 g/dl (32.0-36.5); MEAN CORPUSCULAR VOLUME 84.1 fl (80.0-96.0); PLATELET COUNT, AUTOMATED 228 10^3/uL (150-450); RED BLOOD COUNT 4.77 10^6/uL (4.30-6.10); WHITE BLOOD COUNT 15.5 10^3/uL (4.0-10.0)
[2021-06-03] MEDS: KETOROLAC 30 MG/ML 1ML VIAL IV PRN ×3 (06:45→21:29)
[2021-06-03 06:51] LABS: HEMOGLOBIN 13.8 g/dl (13.5-17.5)
[2021-06-03 07:17] LABS: ALT/SGPT 33 U/L (12-78); BILIRUBIN,TOTAL 0.6 MG/DL (0.2-1.0); BLOOD UREA NITROGEN 12 MG/DL (7-18); CALCIUM LEVEL 8.5 MG/DL (8.5-10.1); CARBON DIOXIDE LEVEL 26 MEQ/L (21-32); CHLORIDE LEVEL 106 MEQ/L (98-107); CREATININE FOR GFR 0.75 MG/DL (0.70-1.30); GLOMERULAR FILTRATION RATE > 60.0 (>56); GLUCOSE, FASTING 131 MG/DL (70-100); SODIUM LEVEL 138 MEQ/L (136-145); TOTAL PROTEIN 6.6 GM/DL (6.4-8.2)
--- NOTE | 2021-06-03 07:41 | IPNPDOC ---
Text Note Date of Service The patient was seen on 06/03/21. NOTE No acute events overnight. Pain is much improved. He is tolerating diet, and has been out of bed, but no urination yet. VSSAF NAD abd - soft, TTP appropriate, drain is serosanguinous labs - below A) 60y/o male s/p lap appy for acute appendicitis P) reg diet ambulate IS iv abx monitor labs likely d/c home in am Antione Carmona DO VS,Olivia, I+O VS, Сергейe, I+O Laboratory Tests 06/02/21 18:28 06/03/21 06:27 Vital Signs Date Time Temp Pulse Resp B/P (MAP) Pulse Ox O2 Delivery O2 Flow Rate FiO2 06/03/21 07:21 98.1 80 18 127/83 (98) 98 Room Air I&O- Last 24 Hours up to 6 AM 06/03/21 06:00 Intake Total 2255 ml Output Total 25 ml Balance 2230 ml NELLY CARMONA DO Jun 03, 2021 07:41
[2021-06-03] MEDS: SENOKOT S TAB PO SCH ×2 (08:39→21:30)
[2021-06-03] MEDS: PANTOPRAZOLE 40MG TAB (PROTONIX) PO SCH (08:39)
[2021-06-03] MEDS: ENOXAPARIN 40MG/0.4ML SYRINGE (J1650 PER 10MG) SC SCH (08:40)
--- NOTE | 2021-06-03 10:39 | RO ---
OPERATIVE NOTE DATE OF OPERATION: 06/02/2021 PREOPERATIVE DIAGNOSIS: Acute appendicitis. POSTOPERATIVE DIAGNOSIS: Acute appendicitis. PROCEDURE: Laparoscopic appendectomy. SURGEON: Rasheed Carmona DO PUBLIC HEALTH SPECIALIST: None. ANESTHESIA: General ESTIMATED BLOOD LOSS: 5 ml COMPLICATIONS: None. INDICATION FOR PROCEDURE: The patient is 60-year-old man who presents with a week long history of right lower quadrant pain and found to have acute appendicitis today on CT. Recommendation is to proceed with laparoscopic appendectomy. Risks and benefits are not limited to, but include bleeding, infection, hernia, damage to surrounding structures and need for further surgery were discussed in detail with the patient. Informed consent was obtained and procedure was planned. DESCRIPTION OF PROCEDURE: The patient was brought to operating room 3. After sufficient sedation, the abdomen was sterilely prepped and draped. Next, time-out was done to confirm proper patient and proper procedure. Following that, a 5 mm incision was made in the left lower quadrant. Veress needle was inserted and the abdomen was insufflated to 15 mmHg. The Veress needle was then removed. A 5 mm Optiview port was used to gain access to the abdomen. Next, an 8 mm port was placed supraumbilically in the midline. Another 5 mm port suprapubically in the midline. The right lower quadrant was examined. Cecum was elevated superiorly revealing a shortened, very thickened inflamed appendix with slight fluid around it. No signs of obvious perforation, but the appendix was definitely necrotic. During manipulation, the appendix did burst open a little bit. There was some purulent fluid draining in the mesentery once that was opened, but no gross spillage of any fluid. Using combination blunt and sharp dissection, I was able to carefully dissect free and completely mobilize the cecum superiorly to assist with removal, also was able to dissect through the mesentery using the Enseal. Once the mesentery was dissected free, the base of the appendix was ligated with 2 PDS Endoloops and then the appendix was amputated off using the Enseal. The appendix was then placed inside of a 5 mm Endo Catch bag, brought out through the 8 mm port site. A 19 Yoruba Brian drain was then placed in the right lower quadrant next to the cecum right after the 8 mm port site as well, sutured to the skin with a 2-0 silk suture. The abdomen was then desufflated. The other two skin incisions were closed with 4-0 Vicryl subcuticular sutures. The abdomen was cleaned and dried and 4 x 4 and tape were applied. This ended the procedure.
[2021-06-03] MEDS: CIPROFLOXACIN 400 MG in IV 1 EA IV SCH ×2 (11:58→21:30)
[2021-06-04] MEDS: metroNIDAZOLE 500 MG in IV 1 EA IV SCH ×2 (00:57→09:27)
[2021-06-04 02:00] VITALS: BP 110/68
[2021-06-04] MEDS: NS 1,000 ML IV SCH ×2 (04:35→09:27)
[2021-06-04] MEDS: KETOROLAC 30 MG/ML 1ML VIAL IV PRN ×2 (04:36→10:51)
[2021-06-04 06:00] VITALS: BP 112/68
[2021-06-04 06:24] LABS: HEMATOCRIT 36.7 % (42.0-52.0); HEMOGLOBIN 12.3 g/dl (13.5-17.5); MEAN CORPUSCULAR HGB CONC 33.5 g/dl (32.0-36.5); MEAN CORPUSCULAR VOLUME 86.6 fl (80.0-96.0); PLATELET COUNT, AUTOMATED 195 10^3/uL (150-450); RED BLOOD COUNT 4.24 10^6/uL (4.30-6.10); WHITE BLOOD COUNT 7.5 10^3/uL (4.0-10.0)
[2021-06-04 06:50] LABS: ALBUMIN 2.6 GM/DL (3.2-5.2); ALT/SGPT 75 U/L (12-78); BILIRUBIN,TOTAL 0.4 MG/DL (0.2-1.0); BLOOD UREA NITROGEN 22 MG/DL (7-18); CALCIUM LEVEL 8.4 MG/DL (8.5-10.1); CARBON DIOXIDE LEVEL 26 MEQ/L (21-32); CHLORIDE LEVEL 109 MEQ/L (98-107); CREATININE FOR GFR 0.74 MG/DL (0.70-1.30); GLOMERULAR FILTRATION RATE > 60.0 (>56); GLUCOSE, FASTING 106 MG/DL (70-100); POTASSIUM SERUM 3.9 MEQ/L (3.5-5.1); SODIUM LEVEL 140 MEQ/L (136-145); TOTAL PROTEIN 5.8 GM/DL (6.4-8.2)
[2021-06-04] MEDS: PANTOPRAZOLE 40MG TAB (PROTONIX) PO SCH (09:28)
[2021-06-04] MEDS: ENOXAPARIN 40MG/0.4ML SYRINGE (J1650 PER 10MG) SC SCH (09:28)
[2021-06-04] MEDS: SENOKOT S TAB PO SCH (09:28)
[2021-06-04] MEDS ORDERED: HYDR-3715 PO (10:18)
[2021-06-04] MEDS: CIPROFLOXACIN 400 MG in IV 1 EA IV SCH (10:50)
--- NOTE | 2021-06-04 12:48 | DSES ---
DISCHARGE SUMMARY DATE OF ADMISSION: 06/02/2021 DATE OF DISCHARGE: 06/04/2021 ADMISSION DIAGNOSIS: Acute appendicitis. DISCHARGE DIAGNOSIS: Acute appendicitis. HOSPITAL COURSE: The patient is a 60-year-old male who presented on the evening of June 02, 2021 with severe abdominal pains and found to have acute appendicitis. He was brought to the operating room in the evening for laparoscopic appendectomy. Postoperatively, he was doing well. Postoperative day #1, his pain was improved. It was still present, but it was appropriate. He was tolerating diet. He had not been out of bed yet, but he had every intention to do so. Throughout the day, he did get up. He moved around a lot. He was tolerating food. His pain continued to improved. Today, postoperative day #2, he is continuing to do better, very anxious to go home. He did have a drain placed during his surgery due to severe inflammation that appears to be serosanguinous. No signs of any infection, abscess or inflammation at this point. Plan is for discharge home today. I am sending him home with some pain pills for a few days. He can shower today. No baths for five days. No lifting more than 20 pounds for two weeks. All of his questions were answered. He will follow up with me in the office in two weeks. If he needs anything else, he will call the office.
== END 2021-06-04 12:52 | disposition home or self-care (01) ==
LOC: M ED 13:01 → M SDC 13:02 → ENRESERVTM 06-03 00:07 → ENRESERVDT 06-03 00:07 → M MS5PR 06-03 01:03 → M SDC 06-04 12:52
PROVIDERS: ATTEND Surgery
DX: K35.890 Other acute appendicitis without perforation or gangrene (principal); F17.218 Nicotine dependence, cigarettes, with other nicotine-induced disorders; F41.9 Anxiety disorder, unspecified; K21.9 Gastro-esophageal reflux disease without esophagitis; Z79.899 Other long term (current) drug therapy; Z91.010 Allergy to peanuts; Z88.0 Allergy status to penicillin; Z88.5 Allergy status to narcotic agent; Z88.8 Allergy status to other drugs, medicaments and biological substances; E78.5 Hyperlipidemia, unspecified
CPT/HCPCS: 36415; 44970; 74177; 76857; 76870; 80047; 80053; 81001; 85025; 85027; 88304; 93976; 96361; 96365; 96366; 96367; 96372; 96375; 96376; 99284; J0131; J0744; J1100; J1650; J1885; J2250; J2270; J2405; J3010; Q9967; U0002

== ENCOUNTER → 2021-06-12 | Outpatient (CLI) | payer OTHER ==
[~2021-06-12] MED LIST changes: +BUPR1FIL37 SL; +BUPR300T92 PO; +CITA20TA7 PO; +HYDR-3715 PO; +HYDR50CA2 PO; +HYDR50TA70 PO; +LISI10TA22 PO; -MONT10TA10 PO; +MONT10TA97 PO; +TAMS1CAP17 PO; +TOPI25TA10 PO; +TRIA37.5 PO
[2021-06-12 16:07] LABS: CALCIUM LEVEL 9.2 MG/DL (8.5-10.1); CREATININE FOR GFR 1.98 MG/DL (0.70-1.30); POTASSIUM SERUM 4.4 MEQ/L (3.5-5.1)
== END ==
LOC: M PLALAB 14:12
DX: R51.9 Headache, unspecified (principal); I10 Essential (primary) hypertension

== ENCOUNTER → 2021-06-16 | Outpatient (CLI) | payer OTHER ==
[~2021-06-16] MED LIST changes: -BUPR1FIL37 SL; +BUPR1FIL6 SL; +MONT10TA10 PO; -MONT10TA97 PO
[2021-06-16 15:37] LABS: BLOOD UREA NITROGEN 12 MG/DL (7-18); CARBON DIOXIDE LEVEL 27 MEQ/L (21-32); CHLORIDE LEVEL 108 MEQ/L (98-107); CREATININE FOR GFR 0.85 MG/DL (0.70-1.30); GLOMERULAR FILTRATION RATE > 60.0 (>56); GLUCOSE, FASTING 92 MG/DL (70-100); POTASSIUM SERUM 4.1 MEQ/L (3.5-5.1); SODIUM LEVEL 138 MEQ/L (136-145)
[2021-06-16 15:38] LABS: TOTAL PROTEIN,RANDOM URINE 14.7 MG/DL (0.0-12.0)
== END ==
LOC: M PLALAB 13:08
PROVIDERS: ATTEND Student in an Organized Health Care Education/Training Program
DX: R79.89 Other specified abnormal findings of blood chemistry (principal)

== ENCOUNTER 2021-06-19 14:30 | Outpatient (RCR) | payer MEDICAID | END 2021-07-04 | LOC: M OUTALCOH 14:30 | PROVIDERS: ATTEND Psychiatry & Neurology Psychiatry | DX: F11.20 Opioid dependence, uncomplicated (principal); F10.10 Alcohol abuse, uncomplicated; F17.200 Nicotine dependence, unspecified, uncomplicated ==

== ENCOUNTER 2021-07-28 13:27 | Outpatient (RCR) | payer MEDICAID | END 2021-08-03 | LOC: M OUTALCOH 13:27 | PROVIDERS: ATTEND Psychiatry & Neurology Psychiatry | DX: F11.21 Opioid dependence, in remission (principal); F10.10 Alcohol abuse, uncomplicated; F17.200 Nicotine dependence, unspecified, uncomplicated ==

== ENCOUNTER 2021-09-25 13:00 | Outpatient (RCR) | payer MEDICAID ==
[~2021-09-25 13:00] MED LIST changes: +BUPR1FIL37 SL; -BUPR1FIL6 SL; -MONT10TA10 PO; +MONT10TA97 PO
== END 2021-10-03 ==
LOC: M OUTALCOH 13:00
PROVIDERS: ATTEND Psychiatry & Neurology Psychiatry
DX: F11.20 Opioid dependence, uncomplicated (principal); F10.10 Alcohol abuse, uncomplicated; F17.200 Nicotine dependence, unspecified, uncomplicated

== ENCOUNTER → 2021-10-06 | Outpatient (CLI) | payer MEDICAID, OTHER ==
[~2021-10-06] MED LIST changes: -BUPR1FIL37 SL; +BUPR1FIL6 SL; +MONT10TA10 PO; -MONT10TA97 PO
--- NOTE | 2021-10-06 19:30 | REP ---
INDICATION: LEFT ARM PAIN. Question foreign body. COMPARISON: None. TECHNIQUE: Targeted soft tissue sonography left forearm. FINDINGS: Soft tissue sonography in the area of the palpable lump demonstrates an elongate hypoechoic subcutaneous superficial structure and consistent with a thrombosed superficial vein. This is noncompressible. No internal flow is seen on Doppler. It measures 2 x 8 x 4 mm. IMPRESSION: Nonspecific hypoechoic structure in the superficial subcutaneous soft tissues possibly a thrombosed segment of superficial subcutaneous vein. Clinical follow-up is advised. <Electronically signed by Sagar Parker > 10/06/215
== END ==
LOC: M WHC 07:56
PROVIDERS: ATTEND Student in an Organized Health Care Education/Training Program
DX: M79.602 Pain in left arm (principal); R22.32 Localized swelling, mass and lump, left upper limb

== ENCOUNTER 2021-11-27 08:00 | Outpatient (RCR) | payer MEDICAID, OTHER ==
[~2021-11-27 08:00] MED LIST changes: +BUPR1FIL37 SL; -BUPR1FIL6 SL; -MONT10TA10 PO; +MONT10TA97 PO
== END 2021-12-04 ==
LOC: M OUTALCOH 08:00
PROVIDERS: ATTEND Psychiatry & Neurology Psychiatry
DX: F11.20 Opioid dependence, uncomplicated (principal); F10.10 Alcohol abuse, uncomplicated; F17.200 Nicotine dependence, unspecified, uncomplicated

== ENCOUNTER 2022-01-22 15:33 | Outpatient (RCR) | payer MEDICAID | END 2022-02-01 | LOC: M OUTALCOH 15:33 | PROVIDERS: ATTEND Psychiatry & Neurology Psychiatry | DX: F11.21 Opioid dependence, in remission (principal); F10.11 Alcohol abuse, in remission; F17.200 Nicotine dependence, unspecified, uncomplicated ==

== ENCOUNTER 2022-02-19 12:52 | Outpatient (RCR) | payer MEDICAID | END 2022-03-03 | LOC: M OUTALCOH 12:52 | PROVIDERS: ATTEND Psychiatry & Neurology Psychiatry | DX: F11.21 Opioid dependence, in remission (principal); F10.11 Alcohol abuse, in remission; F17.200 Nicotine dependence, unspecified, uncomplicated ==

== ENCOUNTER → 2022-03-23 | Outpatient (REF) | payer OTHER | LOC: M SFHCPLAZ 15:49 | PROVIDERS: ATTEND Student in an Organized Health Care Education/Training Program | DX: Z53.9 Procedure and treatment not carried out, unspecified reason (principal) ==

== ENCOUNTER → 2022-04-11 | Outpatient (CLI) | payer OTHER ==
[2022-04-11 13:08] LABS: HEMATOCRIT 39.7 % (42.0-52.0); HEMOGLOBIN 13.4 g/dl (13.5-17.5); MEAN CORPUSCULAR HEMOGLOBIN 30.5 pg (27.0-33.0); MEAN CORPUSCULAR HGB CONC 33.8 g/dl (32.0-36.5); MEAN CORPUSCULAR VOLUME 90.2 fl (80.0-96.0); PLATELET COUNT, AUTOMATED 234 10^3/uL (150-450); WHITE BLOOD COUNT 8.9 10^3/uL (4.0-10.0)
[2022-04-11 13:43] LABS: BLOOD UREA NITROGEN 13 MG/DL (7-18); CALCIUM LEVEL 9.1 MG/DL (8.8-10.2); CARBON DIOXIDE LEVEL 28 MEQ/L (21-32); CHLORIDE LEVEL 109 MEQ/L (98-107); CHOLESTEROL LEVEL 126 MG/DL (<200); CHOLESTEROL RISK RATIO 3.405 (<5); GLOMERULAR FILTRATION RATE > 60.0 (>49); GLUCOSE, FASTING 109 MG/DL (70-100); HDL CHOLESTEROL 37 MG/DL (>40); LDL CHOLESTEROL 56 MG/DL (<100); NON-HDL-C 89 MG/DL; SODIUM LEVEL 143 MEQ/L (136-145); TRIGLYCERIDES LEVEL 164 MG/DL (<150)
== END ==
LOC: M ADAMS 08:41
PROVIDERS: ATTEND Student in an Organized Health Care Education/Training Program
DX: I10 Essential (primary) hypertension (principal); K21.9 Gastro-esophageal reflux disease without esophagitis; E78.2 Mixed hyperlipidemia

== ENCOUNTER 2022-04-30 13:16 | Outpatient (RCR) | payer MEDICAID | END 2022-05-03 | LOC: M OUTALCOH 13:16 | PROVIDERS: ATTEND Psychiatry & Neurology Psychiatry | DX: F11.21 Opioid dependence, in remission (principal); F10.11 Alcohol abuse, in remission; F17.200 Nicotine dependence, unspecified, uncomplicated ==

== ENCOUNTER 2022-05-30 14:21 | Outpatient (RCR) | payer MEDICAID | END 2022-06-03 | LOC: M OUTALCOH 14:21 | PROVIDERS: ATTEND Psychiatry & Neurology Psychiatry | DX: F11.21 Opioid dependence, in remission (principal); F10.11 Alcohol abuse, in remission; F17.200 Nicotine dependence, unspecified, uncomplicated ==

== ENCOUNTER 2022-07-02 09:54 | Outpatient (RCR) | payer MEDICAID | END 2022-07-04 | LOC: M OUTALCOH 09:54 | PROVIDERS: ATTEND Psychiatry & Neurology Psychiatry | DX: F11.21 Opioid dependence, in remission (principal); F10.11 Alcohol abuse, in remission; F17.200 Nicotine dependence, unspecified, uncomplicated ==

== ENCOUNTER → 2022-07-10 | Outpatient (CLI) | payer OTHER | LOC: M CARPUL 10:27 | PROVIDERS: ATTEND Student in an Organized Health Care Education/Training Program | DX: R51.9 Headache, unspecified (principal) ==

== ENCOUNTER 2022-07-26 13:52 | Outpatient (RCR) | payer MEDICAID | END 2022-08-03 | LOC: M OUTALCOH 13:52 | PROVIDERS: ATTEND Psychiatry & Neurology Psychiatry | DX: F11.21 Opioid dependence, in remission (principal); F10.11 Alcohol abuse, in remission; F17.200 Nicotine dependence, unspecified, uncomplicated ==

== ENCOUNTER 2022-08-23 14:33 | Outpatient (RCR) | payer MEDICAID ==
[2022-08-29] MEDS ORDERED: CEPH500C PO (19:34)
== END 2022-09-03 ==
LOC: M OUTALCOH 14:33
PROVIDERS: ATTEND Psychiatry & Neurology Psychiatry
DX: F11.21 Opioid dependence, in remission (principal); F10.11 Alcohol abuse, in remission; F17.200 Nicotine dependence, unspecified, uncomplicated

== ENCOUNTER 2022-08-29 13:11 | Emergency (ER) | payer MEDICAID, OTHER ==
[~2022-08-29] VITALS: Ht 172.7 cm; Wt 75.5 kg
[2022-08-29] MEDS ORDERED: BOOSTRIX/ADACEL VACCINE (DIPHTH/PERTUSS/ACELL/TETANUS) 0.5ML SYR IM ONE (17:35)
[2022-08-29] MEDS ORDERED: LIDOCAINE W/EPINEPHRINE 1% 20ML VIAL SC ONE (17:35)
[2022-08-29] MEDS ORDERED: BACITRACIN OINTMENT 30GM TUBE TOP STA (19:31)
[2022-08-29] MEDS ORDERED: CEPH500C PO (19:34)
[2022-08-29 20:52] VITALS: BP 140/85
== END 2022-08-29 20:09 | disposition home or self-care (01) ==
LOC: M ED 13:11
DX: S51.811A Laceration without foreign body of right forearm, initial encounter (principal); S30.0XXA Contusion of lower back and pelvis, initial encounter; W11.XXXA Fall on and from ladder, initial encounter; Y92.099 Unspecified place in other non-institutional residence as the place of occurrence of the external cause; Y93.89 Activity, other specified; M85.88 Other specified disorders of bone density and structure, other site; F17.200 Nicotine dependence, unspecified, uncomplicated; F12.10 Cannabis abuse, uncomplicated; Z79.899 Other long term (current) drug therapy; Z88.0 Allergy status to penicillin; Z88.6 Allergy status to analgesic agent; Z88.5 Allergy status to narcotic agent; Z88.8 Allergy status to other drugs, medicaments and biological substances; Z91.010 Allergy to peanuts; Z23 Encounter for immunization

== ENCOUNTER 2022-09-20 14:57 | Outpatient (RCR) | payer MEDICAID ==
[~2022-09-20 14:57] MED LIST changes: +CEPH500C PO
== END 2022-10-03 ==
LOC: M OUTALCOH 14:57
PROVIDERS: ATTEND Psychiatry & Neurology Psychiatry
DX: F11.21 Opioid dependence, in remission (principal); F10.11 Alcohol abuse, in remission; F17.200 Nicotine dependence, unspecified, uncomplicated

== ENCOUNTER 2022-10-18 15:11 | Outpatient (RCR) | payer MEDICAID | END 2022-11-03 | LOC: M OUTALCOH 15:11 | PROVIDERS: ATTEND Psychiatry & Neurology Psychiatry | DX: F11.21 Opioid dependence, in remission (principal); F10.11 Alcohol abuse, in remission; F17.200 Nicotine dependence, unspecified, uncomplicated ==

== ENCOUNTER 2022-11-15 15:00 | Outpatient (RCR) | payer MEDICAID | END 2022-12-04 | LOC: M OUTALCOH 15:00 | PROVIDERS: ATTEND Psychiatry & Neurology Psychiatry | DX: F11.21 Opioid dependence, in remission (principal); F10.11 Alcohol abuse, in remission; F17.200 Nicotine dependence, unspecified, uncomplicated ==

== ENCOUNTER 2022-12-20 11:20 | Outpatient (RCR) | payer MEDICAID | END 2023-01-01 | LOC: M OUTALCOH 11:20 | PROVIDERS: ATTEND Internal Medicine | DX: F11.21 Opioid dependence, in remission (principal); F10.11 Alcohol abuse, in remission; F17.200 Nicotine dependence, unspecified, uncomplicated ==

== ENCOUNTER 2023-01-24 11:24 | Outpatient (RCR) | payer MEDICAID | END 2023-02-01 | LOC: M OUTALCOH 11:24 | PROVIDERS: ATTEND Internal Medicine | DX: F11.21 Opioid dependence, in remission (principal); F10.11 Alcohol abuse, in remission; F17.200 Nicotine dependence, unspecified, uncomplicated ==

== ENCOUNTER 2023-03-14 11:15 | Outpatient (RCR) | payer MEDICAID | END 2023-04-03 | LOC: M OUTALCOH 11:15 | PROVIDERS: ATTEND Psychiatry & Neurology Psychiatry | DX: F11.21 Opioid dependence, in remission (principal); F10.11 Alcohol abuse, in remission; F17.200 Nicotine dependence, unspecified, uncomplicated ==

== ENCOUNTER → 2023-04-08 | Outpatient (REF) | payer OTHER | LOC: M SFHCPLAZ 18:47 | PROVIDERS: ATTEND Family Medicine | DX: Z53.20 Procedure and treatment not carried out because of patient's decision for unspecified reasons (principal) ==

== ENCOUNTER 2023-05-02 12:44 | Outpatient (RCR) | payer MEDICAID | END 2023-05-03 | LOC: M OUTALCOH 12:44 | PROVIDERS: ATTEND Internal Medicine | DX: F11.21 Opioid dependence, in remission (principal); F10.11 Alcohol abuse, in remission; F17.200 Nicotine dependence, unspecified, uncomplicated ==

== ENCOUNTER 2023-05-30 12:59 | Outpatient (RCR) | payer MEDICAID | END 2023-06-03 | LOC: M OUTALCOH 12:59 | PROVIDERS: ATTEND Psychiatry & Neurology Psychiatry | DX: F11.21 Opioid dependence, in remission (principal); F10.11 Alcohol abuse, in remission; F17.200 Nicotine dependence, unspecified, uncomplicated ==

== ENCOUNTER 2023-06-24 10:21 | Outpatient (RCR) | payer MEDICAID | END 2023-07-04 | LOC: M OUTALCOH 10:21 | PROVIDERS: ATTEND Psychiatry & Neurology Child & Adolescent Psychiatry | DX: F11.21 Opioid dependence, in remission (principal); F10.11 Alcohol abuse, in remission; F17.200 Nicotine dependence, unspecified, uncomplicated ==

== ENCOUNTER → 2023-07-11 | Outpatient (CLI) | payer OTHER | LOC: M RAD 14:35 | PROVIDERS: ATTEND Student in an Organized Health Care Education/Training Program | DX: Z12.2 Encounter for screening for malignant neoplasm of respiratory organs (principal); F17.200 Nicotine dependence, unspecified, uncomplicated ==

== ENCOUNTER 2023-09-23 09:00 | Outpatient (RCR) | payer MEDICAID | END 2023-10-03 | LOC: M OUTALCOH 09:00 | PROVIDERS: ATTEND Psychiatry & Neurology Psychiatry | DX: F11.21 Opioid dependence, in remission (principal); F10.11 Alcohol abuse, in remission; F17.200 Nicotine dependence, unspecified, uncomplicated ==

== ENCOUNTER 2023-10-21 10:08 | Outpatient (RCR) | payer MEDICAID | END 2023-11-03 | LOC: M OUTALCOH 10:08 | PROVIDERS: ATTEND Psychiatry & Neurology Child & Adolescent Psychiatry | DX: F11.21 Opioid dependence, in remission (principal); F10.11 Alcohol abuse, in remission; F17.200 Nicotine dependence, unspecified, uncomplicated ==

== ENCOUNTER → 2023-11-08 | Outpatient (REF) | payer OTHER | LOC: M SFHCPLAZ 12:36 | PROVIDERS: ATTEND Family Medicine | DX: L85.9 Epidermal thickening, unspecified (principal); H93.90 Unspecified disorder of ear, unspecified ear ==

== ENCOUNTER 2023-11-25 08:22 | Outpatient (RCR) | payer MEDICAID | END 2023-12-04 | LOC: M OUTALCOH 08:22 | PROVIDERS: ATTEND Psychiatry & Neurology Child & Adolescent Psychiatry | DX: F11.21 Opioid dependence, in remission (principal); F10.11 Alcohol abuse, in remission; F17.200 Nicotine dependence, unspecified, uncomplicated ==

== ENCOUNTER 2023-11-26 14:32 | Outpatient (RCR) | payer OTHER | END 2023-12-04 | LOC: M PT 14:32 | PROVIDERS: ATTEND Student in an Organized Health Care Education/Training Program | DX: M40.202 Unspecified kyphosis, cervical region (principal); M54.2 Cervicalgia; Z87.39 Personal history of other diseases of the musculoskeletal system and connective tissue ==

== ENCOUNTER 2023-12-30 08:19 | Outpatient (RCR) | payer MEDICAID | END 2024-01-02 | LOC: M OUTALCOH 08:19 | PROVIDERS: ATTEND Psychiatry & Neurology Psychiatry | DX: F11.21 Opioid dependence, in remission (principal); F10.11 Alcohol abuse, in remission; F17.200 Nicotine dependence, unspecified, uncomplicated ==

== ENCOUNTER → 2023-12-31 | Outpatient (CLI) | payer OTHER | LOC: M RAD 15:23 | PROVIDERS: ATTEND Family Medicine | DX: M47.029 Vertebral artery compression syndromes, site unspecified (principal); Z53.9 Procedure and treatment not carried out, unspecified reason ==

== ENCOUNTER → 2024-01-13 | Outpatient (CLI) | payer OTHER ==
[~2024-01-13] MED LIST changes: +ISOVUE-370 76% 100ML VIAL As Ordered ONE
== END ==
LOC: M RAD 15:27
PROVIDERS: ATTEND Family Medicine
DX: M47.029 Vertebral artery compression syndromes, site unspecified (principal)
CPT/HCPCS: 70498; Q9967

== ENCOUNTER 2024-01-20 08:46 | Outpatient (RCR) | payer MEDICAID ==
[~2024-01-20 08:46] MED LIST changes: -ISOVUE-370 76% 100ML VIAL As Ordered ONE
== END 2024-02-02 ==
LOC: M OUTALCOH 08:46
PROVIDERS: ATTEND Psychiatry & Neurology Psychiatry
DX: F11.21 Opioid dependence, in remission (principal); F10.11 Alcohol abuse, in remission; F17.200 Nicotine dependence, unspecified, uncomplicated

== ENCOUNTER 2024-03-16 08:52 | Outpatient (RCR) | payer MEDICAID ==
[~2024-03-16 08:52] MED LIST changes: +BUPR-597 PO; -BUPR300T92 PO
== END 2024-04-03 ==
LOC: M OUTALCOH 08:52
PROVIDERS: ATTEND Psychiatry & Neurology Child & Adolescent Psychiatry
DX: F11.21 Opioid dependence, in remission (principal); F10.11 Alcohol abuse, in remission; F17.200 Nicotine dependence, unspecified, uncomplicated

== ENCOUNTER 2024-04-20 08:23 | Outpatient (RCR) | payer MEDICAID | END 2024-05-03 | LOC: M OUTALCOH 08:23 | PROVIDERS: ATTEND Psychiatry & Neurology Child & Adolescent Psychiatry | DX: F11.21 Opioid dependence, in remission (principal); F10.11 Alcohol abuse, in remission; F17.200 Nicotine dependence, unspecified, uncomplicated ==

== ENCOUNTER 2024-05-11 09:25 | Outpatient (RCR) | payer MEDICAID | END 2024-06-03 | LOC: M OUTALCOH 09:25 | PROVIDERS: ATTEND Psychiatry & Neurology Psychiatry | DX: F11.21 Opioid dependence, in remission (principal); F10.11 Alcohol abuse, in remission; F17.200 Nicotine dependence, unspecified, uncomplicated ==

== ENCOUNTER → 2024-06-09 | Outpatient (REF) | payer OTHER | LOC: M SFHCPLAZ 17:21 | PROVIDERS: ATTEND Family Medicine | DX: Z00.00 Encounter for general adult medical examination without abnormal findings (principal); Z13.1 Encounter for screening for diabetes mellitus; E78.2 Mixed hyperlipidemia ==

== ENCOUNTER 2024-06-15 09:00 | Outpatient (RCR) | payer MEDICAID | END 2024-07-04 | LOC: M OUTALCOH 09:00 | PROVIDERS: ATTEND Psychiatry & Neurology Child & Adolescent Psychiatry | DX: F11.21 Opioid dependence, in remission (principal); F10.11 Alcohol abuse, in remission; F17.200 Nicotine dependence, unspecified, uncomplicated ==

== ENCOUNTER 2024-06-30 15:15 | Outpatient (RCR) | payer OTHER | END 2024-07-04 | LOC: M PT 15:15 | PROVIDERS: ATTEND Orthopaedic Surgery | DX: M40.202 Unspecified kyphosis, cervical region (principal) ==

== ENCOUNTER 2024-07-23 15:15 | Outpatient (RCR) | payer OTHER | END 2024-08-03 | LOC: M PT 15:15 | PROVIDERS: ATTEND Orthopaedic Surgery | DX: M40.202 Unspecified kyphosis, cervical region (principal) ==

== ENCOUNTER → 2024-08-03 | Outpatient (CLI) | payer OTHER ==
[2024-08-03 16:11] LABS: BASO # 0.1 10^3/uL (0.0-0.2); BASO % 0.7 % (0.0-1.0); EOS # 0.4 10^3/uL (0.0-0.5); HEMATOCRIT 37.1 % (42.0-52.0); HEMOGLOBIN 12.5 g/dl (13.5-17.5); LYMPH # 2.9 10^3/uL (1.5-5.0); LYMPH % 35.3 % (24.0-44.0); MEAN CORPUSCULAR HEMOGLOBIN 30.4 pg (27.0-33.0); MEAN CORPUSCULAR HGB CONC 33.7 g/dl (32.0-36.5); MEAN CORPUSCULAR VOLUME 90.3 fl (80.0-96.0); MONO # 0.7 10^3/uL (0.0-0.8); NEUTROPHILS # 4.1 10^3/uL (1.5-8.5); NEUTROPHILS % 49.6 % (36.0-66.0); PLATELET COUNT, AUTOMATED 249 10^3/uL (150-450); RED BLOOD COUNT 4.11 10^6/uL (4.30-6.10); WHITE BLOOD COUNT 8.2 10^3/uL (4.0-10.0)
[2024-08-03 16:21] LABS: HEMOGLOBIN A1c 5.4 % (4.0-6.0)
[2024-08-03 16:33] LABS: ALBUMIN 3.8 G/DL (3.2-5.2); ALKALINE PHOSPHATASE 67 U/L (46-116); ALT/SGPT 24 U/L (7.0-40); AST/SGOT 24 U/L (<34); BILIRUBIN,TOTAL 0.3 MG/DL (0.3-1.2); BLOOD UREA NITROGEN 14 MG/DL (9-23); CALCIUM LEVEL 9.3 MG/DL (8.3-10.6); CARBON DIOXIDE LEVEL 27 MMOL/L (20-31); CHLORIDE LEVEL 110 MMOL/L (98-107); CHOLESTEROL LEVEL 125 MG/DL (<200); CHOLESTEROL RISK RATIO 2.49 (<5); CREATININE FOR GFR 1.13 MG/DL (0.70-1.30); GLOMERULAR FILTRATION RATE > 60.0 (>49); GLUCOSE, FASTING 81 MG/DL (74-106); HDL CHOLESTEROL 50.2 MG/DL (>40); NON-HDL-C 74.8 MG/DL; POTASSIUM SERUM 3.9 MMOL/L (3.5-5.1); SODIUM LEVEL 138 MMOL/L (136-145); TOTAL PROTEIN 6.2 G/DL (5.7-8.2); TRIGLYCERIDES LEVEL 79 MG/DL (<150)
[2024-08-03 16:35] LABS: FREE T4 1.47 NG/DL (0.89-1.76); THYROID STIMULATING HORMONE 0.549 uIU/ML (0.55-4.78)
== END ==
LOC: M PLALAB 12:35
PROVIDERS: ATTEND Student in an Organized Health Care Education/Training Program
DX: Z00.00 Encounter for general adult medical examination without abnormal findings (principal); Z13.1 Encounter for screening for diabetes mellitus; E78.2 Mixed hyperlipidemia

== ENCOUNTER 2024-08-27 14:28 | Outpatient (RCR) | payer OTHER | END 2024-09-03 | LOC: M PT 14:28 | PROVIDERS: ATTEND Physician Assistant Surgical | DX: M54.2 Cervicalgia (principal) ==

== ENCOUNTER 2024-09-07 09:31 | Outpatient (RCR) | payer OTHER | END 2024-10-03 | LOC: M OUTALCOH 09:31 | PROVIDERS: ATTEND Psychiatry & Neurology Psychiatry | DX: F11.21 Opioid dependence, in remission (principal); F10.11 Alcohol abuse, in remission; F17.200 Nicotine dependence, unspecified, uncomplicated ==

== ENCOUNTER 2024-09-23 15:00 | Outpatient (RCR) | payer OTHER | END 2024-10-03 | LOC: M PT 15:00 | PROVIDERS: ATTEND Physician Assistant Surgical | DX: M54.2 Cervicalgia (principal) ==

== ENCOUNTER → 2024-09-30 | Outpatient (CLI) | payer OTHER | LOC: M RAD 12:29 | PROVIDERS: ATTEND Student in an Organized Health Care Education/Training Program | DX: Z12.2 Encounter for screening for malignant neoplasm of respiratory organs (principal); Z87.891 Personal history of nicotine dependence; I25.10 Atherosclerotic heart disease of native coronary artery without angina pectoris; J47.9 Bronchiectasis, uncomplicated ==

== ENCOUNTER 2024-11-09 08:44 | Outpatient (RCR) | payer OTHER ==
[~2024-11-09 08:44] MED LIST changes: -ADV500INH INH; +ADVA1AER10 INH
== END 2024-12-04 ==
LOC: M OUTALCOH 08:44
PROVIDERS: ATTEND Psychiatry & Neurology Psychiatry
DX: F11.21 Opioid dependence, in remission (principal); F10.11 Alcohol abuse, in remission; F17.200 Nicotine dependence, unspecified, uncomplicated

== ENCOUNTER → 2024-11-23 | Outpatient (CLI) | payer OTHER ==
[2024-11-23 13:29] LABS: BASO # 0.1 10^3/uL (0.0-0.2); BASO % 0.5 % (0.0-1.0); EOS # 0.3 10^3/uL (0.0-0.5); EOS % 2.9 % (0.0-3.0); HEMATOCRIT 43.5 % (42.0-52.0); HEMOGLOBIN 14.7 g/dl (13.5-17.5); LYMPH # 2.6 10^3/uL (1.5-5.0); MEAN CORPUSCULAR HEMOGLOBIN 29.9 pg (27.0-33.0); MEAN CORPUSCULAR HGB CONC 33.8 g/dl (32.0-36.5); MEAN CORPUSCULAR VOLUME 88.6 fl (80.0-96.0); MONO # 0.9 10^3/uL (0.0-0.8); MONO % 9.8 % (2.0-8.0); NEUTROPHILS # 5.7 10^3/uL (1.5-8.5); NEUTROPHILS % 59.4 % (36.0-66.0); PLATELET COUNT, AUTOMATED 336 10^3/uL (150-450); RED BLOOD COUNT 4.91 10^6/uL (4.30-6.10); WHITE BLOOD COUNT 9.6 10^3/uL (4.0-10.0)
[2024-11-23 13:53] LABS: THYROID STIMULATING HORMONE 0.521 uIU/ML (0.55-4.78)
[2024-11-23 13:54] LABS: FREE T4 1.53 NG/DL (0.89-1.76)
[2024-11-23 15:59] LABS: ALBUMIN 3.7 G/DL (3.2-5.2); ALKALINE PHOSPHATASE 94 U/L (40-129); ALT/SGPT 19 U/L (7.0-40); AST/SGOT 14 U/L (<34); BILIRUBIN,TOTAL 0.4 MG/DL (0.3-1.2); BLOOD UREA NITROGEN 16 MG/DL (9-23); CALCIUM LEVEL 9.7 MG/DL (8.3-10.6); CARBON DIOXIDE LEVEL 26 MMOL/L (20-31); CHLORIDE LEVEL 108 MMOL/L (98-107); CREATININE FOR GFR 1.04 MG/DL (0.70-1.30); GLOMERULAR FILTRATION RATE > 60.0 (>49); GLUCOSE, FASTING 105 MG/DL (74-106); POTASSIUM SERUM 4.5 MMOL/L (3.5-5.1); SODIUM LEVEL 143 MMOL/L (136-145); TOTAL PROTEIN 6.8 G/DL (5.7-8.2)
== END ==
LOC: M LABDRWAD 10:42
DX: R13.13 Dysphagia, pharyngeal phase (principal)

== ENCOUNTER → 2024-12-01 | Outpatient (CLI) | payer OTHER ==
[~2024-12-01] MED LIST changes: +ISOVUE-370 76% 100ML VIAL ONE
== END ==
LOC: M PLAIMG 08:48
DX: R13.10 Dysphagia, unspecified (principal)

== ENCOUNTER 2024-12-07 08:52 | Outpatient (RCR) | payer MEDICAID ==
[~2024-12-07 08:52] MED LIST changes: -ISOVUE-370 76% 100ML VIAL ONE
== END 2025-01-01 ==
LOC: M OUTALCOH 08:52
PROVIDERS: ATTEND Psychiatry & Neurology Psychiatry
DX: F11.21 Opioid dependence, in remission (principal); F10.11 Alcohol abuse, in remission; F17.200 Nicotine dependence, unspecified, uncomplicated

== ENCOUNTER 2025-01-18 08:30 | Outpatient (RCR) | payer MEDICAID | END 2025-02-01 | LOC: M OUTALCOH 08:30 | PROVIDERS: ATTEND Psychiatry & Neurology Psychiatry | DX: F11.21 Opioid dependence, in remission (principal); F10.11 Alcohol abuse, in remission; F17.200 Nicotine dependence, unspecified, uncomplicated ==

== ENCOUNTER 2025-03-01 10:19 | Outpatient (RCR) | payer MEDICAID ==
[~2025-03-01 10:19] MED LIST changes: -AMBI10TA PO; -BUPR-597 PO; +BUPR-766 PO; +TOPI-256 PO; -TOPI25TA10 PO; +ZOLP-533 PO
== END 2025-03-03 ==
LOC: M OUTALCOH 10:19
PROVIDERS: ATTEND Psychiatry & Neurology Psychiatry
DX: F11.21 Opioid dependence, in remission (principal); F10.11 Alcohol abuse, in remission; F17.200 Nicotine dependence, unspecified, uncomplicated

== ENCOUNTER 2025-05-31 10:00 | Outpatient (RCR) | payer MEDICAID | END 2025-06-03 | LOC: M OUTALCOH 10:00 | PROVIDERS: ATTEND Psychiatry & Neurology Psychiatry | DX: F11.21 Opioid dependence, in remission (principal); F10.11 Alcohol abuse, in remission; F17.200 Nicotine dependence, unspecified, uncomplicated ==

== ENCOUNTER 2025-08-09 07:56 | Outpatient (RCR) | payer MEDICAID ==
[~2025-08-09 07:56] MED LIST changes: -IBUP-1022 PO; +IBUP600T42 PO
== END 2025-09-03 ==
LOC: M OUTALCOH 07:56
PROVIDERS: ATTEND Psychiatry & Neurology Psychiatry
DX: F11.21 Opioid dependence, in remission (principal); F10.11 Alcohol abuse, in remission; F17.200 Nicotine dependence, unspecified, uncomplicated

== ENCOUNTER 2025-09-20 09:32 | Outpatient (RCR) | payer MEDICAID | END 2025-10-03 | LOC: M OUTALCOH 09:32 | PROVIDERS: ATTEND Psychiatry & Neurology Psychiatry | DX: F11.20 Opioid dependence, uncomplicated (principal); F10.10 Alcohol abuse, uncomplicated; F17.200 Nicotine dependence, unspecified, uncomplicated ==

== ENCOUNTER 2025-10-18 09:24 | Outpatient (RCR) | payer MEDICAID | END 2025-11-03 | LOC: M OUTALCOH 09:24 | PROVIDERS: ATTEND Psychiatry & Neurology Psychiatry | DX: F11.21 Opioid dependence, in remission (principal); F10.11 Alcohol abuse, in remission; F17.200 Nicotine dependence, unspecified, uncomplicated ==